=== PATIENT | female | born 1990 | race Caucasian/White ===

== ENCOUNTER 2020-07-09 14:41 | Emergency (ER) | payer OTHER, SELFPAY ==
[2020-07-09 15:06] VITALS: BP 138/84; PULSE 64; RESP 18; TEMP 36.6; O2SAT 97
--- NOTE | 2020-07-09 15:12 | ED.WOUNDLAC ---
HPI - Wound/Laceration General Chief Complaint: Wound/Laceration Stated Complaint: dog bite to lip Time Seen by Provider: 07/09/20 14:48 Source: patient Mode of arrival: ambulatory Limitations: no limitations History of Present Illness HPI narrative: Patient is a 30-year-old female who presents with wound secondary to dog bite patient was at her sister's house when she was bit by her sister's dog patient is unsure as to tetanus status has large defects to the upper and lower left lips patient also has some puncture wounds to the right distal forearm. Patient notes moderate aching pain. Patient presents per private vehicle has not had anything for her symptoms Related Data Home Medications Medication Instructions Recorded Confirmed buspirone mg 07/09/20 duloxetine mg PO 07/09/20 07/09/20 Allergies Allergy/AdvReac Type Severity Reaction Status Date / Time vancomycin Allergy Mild Unknown Verified 07/09/20 15:10 Review of Systems Review of Systems: All systems reviewed & are unremarkable except as noted in HPI and below PMFSH Past Medical History Medical History (Updated 07/09/20 @ 15:15 by Chino Morton PA-C) Anxiety Social History Social History (Updated 07/09/20 @ 15:14 by Chino Morton PA-C) Smoking status: Current every day smoker Exam Narrative: Exam Narrative: GENERAL: Well-appearing, well-nourished, and in no acute distress. HEAD: Normocephalic, large tissue defect to the left upper and lower lateral lip tissue EYES: PERRLA and EOMI. ENT: Nares clear, no rhinorrhea or epistaxis. Mucous membranes moist. Oropharynx without tonsillar hypertrophy exudate or other lesions. CHEST: Clear to auscultation. No respiratory distress. No wheezes rales or rhonchi HEART: Regular rate and rhythm. No murmur heard. Normal peripheral pulses.. EXTREMITIES: Normal range of motion. No edema. Puncture wounds to the distal right forearm SKIN: Warm, dry, no rash. NEURO: No focal deficits. Alert and oriented x3. Neurovascularly intact. Capillary refill less than 2 seconds PSYCH: Normal mood and affect. Course Course Emergency Course: Patient in the room aware of case findings treatment plan and diagnosis and agreeing to transfer to [facility]. Patient prefers to go by private vehicle Reevaluation(s) Reevaluation #1: Spoke with the ER attending who has accepted the patient Discussed case with Dr. Marquis plastic surgery at [facility] who recommends the patient be transferred to tertiary facility Date: 07/09/20 Time: 15:53 Reevaluation #2: Discussed [facility] who would like the patient to be transferred over Date: 07/09/20 Time: 16:50 Vital Signs Vital signs: Vital Signs Temperature 97.9 F 07/09/20 15:06 Pulse Rate 64 07/09/20 15:06 Respiratory Rate 18 07/09/20 15:06 Blood Pressure 138/84 07/09/20 15:06 Pulse Oximetry 97 07/09/20 15:06 Temperature 97.9 F 07/09/20 15:06 Pulse Rate 64 07/09/20 15:06 Respiratory Rate 18 07/09/20 15:06 Blood Pressure 138/84 07/09/20 15:06 Pulse Oximetry 97 07/09/20 15:06 MDM - Wound/Laceration MDM Narrative Medical decision making narrative: Patient with significant facial trauma will be transferred to [facility] for acute evaluation by ENT Critical Care Time Critical Care Time Critical Care Time: Yes Total Critical Care Time: 32 Discharge Plan Discharge Clinical Impression: Complex laceration of face, Puncture wound of forearm, right Patient Disposition: Acute Care Hospital Condition: Stable Additional Instructions: Go straight to the emergency department at [facility] do not eat or drink anything Prescriptions: No Action buspirone 5 mg tablet RF: 0 duloxetine 60 mg capsule,delayed release(DR/EC) PO RF: 0 Follow-up/Referrals: Sam Flores MD [Primary Care Provider] -
[2020-07-09] MEDS: HYDROcodone/acetaminophen (*CRX) 7.5-325 MG TABLET 1 TAB PO (15:22)
[2020-07-09] MEDS: LORazepam (*CRX) 1 MG TABLET PO (15:22)
[2020-07-09] MEDS: TETANUS,DIPHTHERIA,AC PERTUSSIS ADULT (0.5 ML) BOOSTRIX IM (15:30)
--- NOTE | 2020-07-09 15:30 | PC.NURSE ---
Patient has dog bite noted to her right forearm. There are multiple bite watson noted with swelling noted as well. Area cleaned with soap and water, dried blood removed, and wound bandaged with telfa and gauze. Patient also has dog bite noted to left side of mouth. The left upper and lower lips have been bitten off with large avulsed area noted to the left upper and lower lips. Wound was cleaned with sterile saline and then bandaged with non-stick dressing and gauze. Patient does not appear to have any wounds noted in the mouth and there are no teeth that appear missing or broken. no Other wounds are noted with assessment.
[2020-07-09 17:04] VITALS: BP 129/81; PULSE 91; RESP 20; TEMP 37.2; O2SAT 97
[2020-07-09] MEDS: ceFAZolin SODIUM 1 GM VIAL IM (17:19)
[2020-07-09] MEDS: WATER, STERILE FOR INJECTION 10 ML VIAL XX (17:23)
== END 2020-07-09 17:23 | disposition short-term general hospital (02) ==
PROVIDERS: Emergency Provider Emergency Medicine; PCP Family Medicine
DX: S01.551A Open bite of lip, initial encounter (principal); S50.871A Other superficial bite of right forearm, initial encounter; W54.0XXA Bitten by dog, initial encounter; F41.9 Anxiety disorder, unspecified; Z23 Encounter for immunization
CPT/HCPCS: 90471; 90715; 96372; 99283; A9270; J0690

== ENCOUNTER 2020-08-08 18:49 | Emergency (ER) | payer OTHER, SELFPAY ==
--- NOTE | ~2020-08-08 | CT_ITS ---
EXAMINATION: CT abdomen pelvis w con EXAM DATE: 08/08/2020 21:59 INDICATION: Right flank pain, nausea and vomiting. TECHNIQUE: Spiral CT of the abdomen and pelvis was performed following intravenous injection of 100 m L Omnipaque 350. Axial, coronal and sagittal images were reviewed. The dose-length product (DLP) fo r this examination was 557.07 mGy-cm. The exposure was tailored according to patient size (auto mA e xposure control), and iterative reconstruction (ASIR) was used as additional dose reduction technique . There is no prior study for comparison. FINDINGS: There is enhancing right renal urothelium, with inflammation surrounding the ureter, kidney , renal pelvis and regions of decreased right renal parenchymal enhancement. Appearance is consistent with pyelonephritis. No hydronephrosis. Bladder wall is significantly thickened anteriorly and super iorly up to 1.5 cm, probably cystitis. The liver, spleen, adrenal glands and pancreas are unremarkable. Gallbladder is unremarkable. No bi liary obstruction. The uterus is retroverted and morphologically normal, with the IUD in expected po sition. The bladder is unremarkable. There is no retroperitoneal or pelvic lymphadenopathy. The appendix is normal. The stomach and small bowel are unremarkable. There is expected amount of c olonic stool. No free intraperitoneal gas. The heart is normal in size. There are no pericardial or pleural effusions. The lung bases are unremarkable. The bones are unremarkable. IMPRESSION: 1. Acute right-sided pyelonephritis. 2. Cystitis. Reviewed, dictated and finalized at location A.
[2020-08-08 19:01] VITALS: BP 111/75; PULSE 96; RESP 20; TEMP 36.4; O2SAT 100
[2020-08-08] MEDS: SODIUM CHLORIDE 0.9% IV 1,000 ML 999 ML IV CONT (19:43)
[2020-08-08] MEDS: ONDANSETRON INJ 4 MG/2 ML VIAL IV PUSH (19:45)
[2020-08-08] MEDS: MORPHINE SULFATE (*CRX) 4 MG/ML INJ IV PUSH ×2 (19:46→21:16)
[2020-08-08 19:57] LABS: Basophils Percent Auto 0.2 % (0.2-1.2); Eosinophils Percent Auto 0.2 % (0-4.4); Hematocrit 41.7 % (37.0-47.0); Immature Granulocyte Absolute 0.09 K/mm3 (0.00-0.031); Immature Granulocyte Percent A 0.5 % (0-0.5); Lymphocytes Absolute Auto 2.29 K/mm3 (0.9-3.2); Lymphocytes Percent Auto 12.3 % (18.3-44.2); Mean Corpuscular HGB Conc 33.6 g/dl (32-36); Mean Corpuscular Hemoglobin 31.1 pg (26-34); Mean Corpuscular Volume 92.7 fl (80-100); Monocytes Absolute Auto 1.3 K/mm3 (0.1-0.6); Monocytes Percent Auto 6.9 % (2.6-8.5); Neutrophils Absolute Auto 14.9 K/mm3 (1.3-6.7); Neutrophils Percent Auto 79.9 % (45.5-73.1); Platelet Count Result 235 k/mm3 (150-375); Red Cell Distribution Width 13.6 % (11.5-14.5); White Blood Count 18.6 K/mm3 (4.5-10.0)
[2020-08-08 20:02] LABS: Add Urine Microscopic? YES; Appearance Urine Cloudy (Clear); Bilirubin Urine Negative (Negative); Blood Urine 2+ (Negative); Color Urine Amber (Yellow); Glucose Urine UA Negative (Negative); Ketones Urine 2+ mg/dL (Negative); Leukocyte Esterase Ur 3+ LEU/UL (Negative); Mucus Urine Heavy /lpf; Nitrate Urine Negative (Negative); Protein Urine 2+ mg/dL (Negative); Specific Grav Ur 1.023 (1.001-1.035); Squamous Epithelial Cell Urine Many /hpf (Few); Urobilinogen Urine Negative mg/dL (<2.0); WBC Urine >75 /hpf
[2020-08-08 20:09] LABS: Anion Gap 6 mmol/L (8-16); Blood Urea Nitrogen 9 mg/dL (7-17); Carbon Dioxide 29 mmol/L (22-30); Chloride 101 mmol/L (98-107); Estimated Glomerular Filt Rate > 60; Glucose 107 mg/dL (65-105); Potassium 3.7 mmol/L (3.4-5.0); Sodium 136 mmol/L (137-145)
[2020-08-08 20:24] VITALS: BP 113/77; PULSE 85; RESP 19; O2SAT 97
[2020-08-08 21:16] VITALS: BP 108/73; PULSE 88; RESP 15; O2SAT 100
[2020-08-08] MEDS: HYDROmorphone HCL INJ (*CRX) 1 MG/ML SYR 0.5 MG IV PUSH (22:14)
--- NOTE | 2020-08-08 23:10 | ED.GENADULT ---
HPI - General Adult General Chief complaint: Back Pain/Injury Stated complaint: R FLANK PAIN X4D Time Seen by Provider: 08/08/20 19:22 History of Present Illness HPI narrative: Patient is 30-year-old female presents the ER with right-sided flank pain increasing throughout the day. Reports is particularly severe. Can only lay on her left side remain comfortable. Worse with movement. She reports its associated with dark and frequent urination. No fevers or chills or sweats. She has had some nausea with vomiting. Related Data Home Medications Medication Instructions Recorded Confirmed buspirone mg 07/09/20 duloxetine mg PO 07/09/20 07/09/20 Allergies Allergy/AdvReac Type Severity Reaction Status Date / Time vancomycin Allergy Mild Unknown Verified 08/08/20 19:14 Review of Systems Review of Systems: All systems reviewed & are unremarkable except as noted in HPI and below Constitutional: Constitutional: Reports chills, Reports fatigue and Denies fever(s) ENT: Denies nasal congestion and Denies sore throat Gastrointestinal: Gastrointestinal: Reports abdominal pain, Denies diarrhea, Reports nausea and Denies vomiting Genitourinary: Genitourinary: Reports nocturia and Denies dysuria PMFSH Past Medical History Medical History (Updated 08/08/20 @ 23:26 by Mitul Olson MD) Anxiety Surgical History Surgical History (Updated 08/08/20 @ 23:26 by Mitul Olson MD) No history of previous surgery Social History Social History (Updated 07/09/20 @ 15:14 by Chino Morton PA-C) Smoking status: Current every day smoker Exam Narrative: Exam Narrative: GENERAL: Uncomfortable-appearing, well-nourished, and in no acute distress. HEAD: Normocephalic, atraumatic. ENT: Mucous membranes moist. CHEST: Clear to auscultation. No respiratory distress. HEART: Regular rate and rhythm. Normal peripheral pulses. ABDOMEN: Soft, moderate right lateral abdominal tenderness, nondistended. No CVA tenderness. EXTREMITIES: Normal range of motion. No edema. SKIN: Warm, dry, no rash. NEURO: Alert and oriented x3. Course Course Emergency Course: Pain controlled with morphine and Dilaudid. Patient feels comfortable going home. She is able to tolerate oral fluids in the ER. She is received IV ceftriaxone. Educated on diagnosis and treatment plan. Discussed return precautions. Vital Signs Vital signs: Vital Signs Temperature 97.5 F L 08/08/20 19:01 Pulse Rate 96 08/08/20 19:01 Respiratory Rate 20 08/08/20 19:01 Blood Pressure 111/75 08/08/20 19:01 Pulse Oximetry 100 08/08/20 19:01 Temperature 97.5 F L 08/08/20 19:01 Pulse Rate 88 08/08/20 21:16 Respiratory Rate 15 08/08/20 21:16 Blood Pressure 108/73 08/08/20 21:16 Pulse Oximetry 100 08/08/20 21:16 Medical Decision Making Vital Signs Vital Signs: Vital Signs Temperature 97.5 F L 08/08/20 19:01 Pulse Rate 96 08/08/20 19:01 Respiratory Rate 20 08/08/20 19:01 Blood Pressure 111/75 08/08/20 19:01 Pulse Oximetry 100 08/08/20 19:01 Temperature 97.5 F L 08/08/20 19:01 Pulse Rate 88 08/08/20 21:16 Respiratory Rate 15 08/08/20 21:16 Blood Pressure 108/73 08/08/20 21:16 Pulse Oximetry 100 08/08/20 21:16 Lab Data Result diagrams: 08/08/20 19:49 08/08/20 19:49 Labs: Lab Results 08/08/20 08/08/20 08/08/20 Range/Units 19:49 19:49 19:49 WBC 18.6 H (4.5-10.0) K/mm3 RBC 4.50 (4.2-5.4) M/mm3 Hgb 14.0 (12.0-15.0) g/dL Hct 41.7 (37.0-47.0) % MCV 92.7 (80-100) fl MCH 31.1 (26-34) pg MCHC 33.6 (32-36) g/dl RDW 13.6 (11.5-14.5) % Plt Count 235 (150-375) k/mm3 MPV 10.0 (7.4-10.4) fl Immature Gran % (Auto) 0.5 (0-0.5) % Neut % (Auto) 79.9 H (45.5-73.1) % Lymph % (Auto) 12.3 L (18.3-44.2) % [place] % (Auto) 6.9 (2.6-8.5) % Eos % (Auto) 0.2 (0-4.4) % Baso % (Auto) 0.2 (0.2-1.2) % Ly
[2020-08-08 23:45] VITALS: BP 119/67; PULSE 69; RESP 18; O2SAT 97
== END 2020-08-08 23:50 | disposition home or self-care (01) ==
PROVIDERS: Emergency Provider Emergency Medicine; PCP Family Medicine
DX: N12 Tubulo-interstitial nephritis, not specified as acute or chronic (principal); N30.90 Cystitis, unspecified without hematuria; F41.9 Anxiety disorder, unspecified; F17.200 Nicotine dependence, unspecified, uncomplicated
CPT/HCPCS: 36415; 74177; 80048; 81001; 81025; 85025; 87077; 87086; 87088; 87186; 96361; 96365; 96375; 96376; 99284; J0696; J1170; J2270; J2405; J7030; Q9967

== ENCOUNTER 2021-07-14 18:44 | Emergency (ER) | payer OTHER, SELFPAY ==
--- NOTE | ~2021-07-14 | CT_ITS ---
EXAMINATION: CT abdomen pelvis w con DATE: 07/14/2021 23:51 INDICATION: Abdominal pain. Hematochezia. TECHNIQUE: Computed tomography (CT) of the abdomen and pelvis was performed with 100 mL Omnipaque-350 intravenous contrast. Automated exposure control and iterative reconstruction technique were employe d. The dose-length product was 339.54 mGy-cm. COMPARISON: 08/08/2020 FINDINGS: Unchanged 6 mm pleural-based nodule at the posterior left lower lobe. There is a large inferior heart is normal. No pericardial or pleural effusion. Liver, gallbladder, spleen, pancreas, bilateral adren al glands and kidneys are normal. Bowels including the appendix are normal. IUD in expected position in the retroverted uterus. Tampon within the vaginal vault. Bladder is normal. Minimal likely physiol ogic free fluid in the cul-de-sac. No free intraperitoneal gas. No pathologically enlarged abdominal or pelvic lymphadenopathy. Bones are unremarkable. IMPRESSION: 1. No acute intra-abdominal/pelvic process. Reviewed, dictated and finalized at location A.
[2021-07-14 18:47] VITALS: BP 132/80; PULSE 85; RESP 16; TEMP 36.6; O2SAT 100
[2021-07-14 19:01] LABS: Basophils Absolute Auto 0.1 K/mm3 (0.0-0.1); Basophils Percent Auto 0.4 % (0.2-1.2); Eosinophils Absolute Auto 0.1 K/mm3 (0-0.3); Eosinophils Percent Auto 1.1 % (0-4.4); Hematocrit 45.4 % (37.0-47.0); Hemoglobin 15.5 g/dL (12.0-15.0); Immature Granulocyte Absolute 0.03 K/mm3 (0.00-0.031); Immature Granulocyte Percent A 0.3 % (0-0.5); Lymphocytes Percent Auto 48.5 % (18.3-44.2); Mean Corpuscular HGB Conc 34.1 g/dl (32-36); Mean Corpuscular Hemoglobin 32.9 pg (26-34); Mean Corpuscular Volume 96.4 fl (80-100); Mean Platelet Volume 9.3 fl (7.4-10.4); Monocytes Absolute Auto 0.4 K/mm3 (0.1-0.6); Neutrophils Absolute Auto 5.1 K/mm3 (1.3-6.7); Neutrophils Percent Auto 45.7 % (45.5-73.1); Platelet Count Result 275 k/mm3 (150-375); Red Blood Count 4.71 M/mm3 (4.2-5.4); White Blood Count 11.1 K/mm3 (4.5-10.0)
[2021-07-14 19:12] LABS: Alanine Aminotransferase 16 U/L (4-35); Albumin Level 4.7 g/dL (3.5-5.1); Alkaline Phosphatase 76 U/L (38-126); Anion Gap 10 mmol/L (8-16); Aspartate Amino Transferase 22 U/L (14-36); Bilirubin,Total 0.4 mg/dL (0.2-1.3); Blood Urea Nitrogen 7 mg/dL (7-17); Carbon Dioxide 24 mmol/L (22-30); Chloride 105 mmol/L (98-107); Estimated CRCL calculation 79 ml/min; Estimated Glomerular Filt Rate > 60; Glucose 94 mg/dL (65-110); Potassium 3.7 mmol/L (3.4-5.0); Sodium 139 mmol/L (137-145)
[2021-07-14 19:20] LABS: Partial Thromboplastin Time 28.2 SECONDS (22.3-36.8); Prothrombin Time 12.8 Seconds (11.1-14.7)
[2021-07-14 21:08] VITALS: BP 119/92; PULSE 78; RESP 18; O2SAT 100
--- NOTE | 2021-07-14 21:38 | ED.GIBLEED ---
HPI - GI Bleed General Chief complaint: GI Bleed Stated complaint: Blood in stool x 3 days Time Seen by Provider: 07/14/21 21:10 Source: patient Mode of arrival: ambulatory Limitations: no limitations History of Present Illness HPI Narrative: Patient is a 31-year-old female complaining of blood in her stool accompanied by lower abdominal pain, dull, cramping, started 3 days ago. Patient denies any hemoptysis, hematemesis, or melena. Patient denies any nausea, vomiting, diarrhea, fever or chills. Patient denies any similar episodes in the past. Denies being on any oral anticoagulants. Related Data Home Medications Medication Instructions Recorded Confirmed buspirone mg 07/09/20 duloxetine mg PO 07/09/20 07/09/20 Allergies Allergy/AdvReac Type Severity Reaction Status Date / Time vancomycin Allergy Mild Unknown Verified 07/14/21 21:11 Review of Systems Review of Systems: All systems reviewed & are unremarkable except as noted in HPI and below Constitutional: Constitutional: Denies body ache(s), Denies chills, Denies excessive sweating, Denies fatigue, Denies fever(s), Denies headache(s), Denies lethargy, Denies malaise, Denies weakness and Denies weight loss Eyes: Eyes: Denies blurry vision, Denies change in vision and Denies loss of vision ENT: Denies dizziness, Denies ear discharge, Denies headache(s), Denies lip swelling, Denies epistaxis, Denies nasal congestion, Denies neck pain, Denies throat swelling and Denies tongue swelling Cardiovascular: Cardiovascular: Denies chest pain, Denies chest pain at rest, Denies chest pain with activity, Denies diaphoresis, Denies rapid heart rate, Denies edema, Denies irregular heart rhythm, Denies lightheadedness, Denies palpitations, Denies dyspnea and Denies dyspnea on exertion Respiratory: Respiratory: Denies chest congestion, Denies cough, Denies hemoptysis, Denies dyspnea and Denies dyspnea on exertion Gastrointestinal: Gastrointestinal: Denies abdominal pain, Denies melena, Denies diarrhea, Denies nausea, Denies vomiting and Denies hematemesis Musculoskeletal: Musculoskeletal: Denies abnormal gait, Denies deformity, Denies joint swelling, Denies limited range of motion, Denies neck pain and Denies numbness Neurologic: Denies Abnormal speech present, Denies abnormal gait, Denies confusion, Denies dizziness, Denies headache(s), Denies focal weakness, Denies loss of vision, Denies numbness, Denies Other visual disturbances, Denies Sensory deficit (Neuro) and Denies weakness Psychiatric: Psychiatric: Denies confusion, Denies depression, Denies auditory hallucinations, Denies homicidal ideation and Denies suicidal ideation Endocrine: Endocrine: Denies cold intolerance, Denies excessive sweating, Denies fatigue, Denies heat intolerance and Denies palpitations Hematologic/Lymphatic: Hematologic/Lymphatic: Denies easy bleeding and Denies easy bruising Allergic/Immunologic: Allergic/Immunologic: Denies lip swelling, Denies throat swelling and Denies tongue swelling PMFSH Past Medical History Medical History (Updated 07/15/21 @ 00:22 by Guero Leigh MD) Anxiety Surgical History Surgical History (Updated 08/08/20 @ 23:26 by Mitul Olson MD) No history of previous surgery Social History Social History (Updated 07/09/20 @ 15:14 by Chino Morton PA-C) Smoking status: Current every day smoker Comments Past medical history: Anxiety depression Family history: Negative for colorectal CA or history of GI bleed Social history: Positive for smoker no EtOH or drug use Exam Const: General: cooperative, healthy appearing, comfortable, no acute distress, well developed, alert and awake; No confusion Orientation/consciousness: oriented to person, oriented to place, oriented to time, patient oriented x3 and No confusion Limitations: no limitations HENMT: Head: normal to inspection, normocephalic and atraumatic Ears: hearing grossly normal bilaterally, TM normal
[2021-07-14] MEDS: PANTOPRAZOLE SODIUM IV 40 MG VIAL IV PUSH (22:11)
[2021-07-14] MEDS: SODIUM CHLORIDE 0.9% IV 1,000 ML 999 ML IV CONT (22:11)
[2021-07-14 23:08] VITALS: BP 120/78; PULSE 67; RESP 18; O2SAT 99
[2021-07-15 00:28] VITALS: BP 110/78; PULSE 67; RESP 18; O2SAT 97
== END 2021-07-15 00:30 | disposition home or self-care (01) ==
PROVIDERS: Emergency Medicine; Emergency Provider Emergency Medicine; PCP Family Medicine
DX: K62.5 Hemorrhage of anus and rectum (principal); F41.9 Anxiety disorder, unspecified
CPT/HCPCS: 36415; 74177; 80053; 81025; 85025; 85610; 85730; 86850; 86900; 86901; 96361; 96374; 99284; C9113; J7030; Q9967

== ENCOUNTER 2021-08-26 01:58 | Day surgery (SDC) | payer OTHER, SELFPAY ==
[2021-08-07 13:43] VITALS: BMI 28.2
[2021-08-26 10:04] VITALS: BP 109/70; PULSE 88; RESP 16; TEMP 37; O2SAT 96
[2021-08-26] MEDS: LACTATED RINGERS 1,000 ML 150 ML IV CONT (10:13)
[2021-08-26] MEDS: FAMOTIDINE 20 MG/2 ML VIAL IV PUSH (10:28)
--- NOTE | 2021-08-26 10:40 | P.PNAN_ITS ---
Anes - Initial Pre Proc Eval Procedure: Operation Date: 08/26/21 11:15 Proposed Procedures p Colonoscopy - Humberto Negrete MD Date/Time: 08/26/21 10:40 Surgeon: Humberto Negrete MD Pre Op Diagnosis: Rectal Bleeding Patient Data Age: 31 Gender: F Height: 1.57 m Weight: 65.6 kg Last Vital Signs Temp 98.6 F 08/26/21 10:04 Pulse 88 08/26/21 10:04 Resp 16 08/26/21 10:04 BP 109/70 08/26/21 10:04 Pulse Ox 96 08/26/21 10:04 Allergies Allergy/AdvReac Type Severity Reaction Status Date / Time vancomycin Allergy Mild Unknown Verified 08/26/21 10:01 Home Medications Medication Instructions Recorded Confirmed Type duloxetine 120 mg PO DAILY 07/09/20 08/26/21 History Saccharomyces boulardii 250 mg 250 mg PO .QD cap 07/23/21 08/07/21 History capsule bupropion HCl 300 mg 24 hr tablet, 300 mg PO QAM 07/27/21 08/07/21 History extended release Patient hx anesthesia problems: none Family hx anesthesia problems: none Results Review: All pre-operative results and documents have been reviewed as part of the pre-operative evaluation. [facility] Past Medical History Medical History Anxiety Body mass index [BMI] 26.0-26.9, adult Surgical History Surgical History History of eye surgery History of tonsillectomy and adenoidectomy No history of previous surgery Social History Social History Smoking status: Current every day smoker Tobacco type: cigars Additional smoking assessment comments: smokes 2 cigars a day Alcohol intake: current Alcohol use details: rarely Substance use: never Substance use type: does not use Living arrangements: with family Spiritual care concerns: No Anes - Eval Final PreProcedure Day of Procedure 08/26/21 10:40 Patient weight: normal Heart: regular rate and rhythm Lungs: clear to auscultation Airway: Mallampati scale class II Neurological: alert and oriented Last oral intake: >/= 8 hours ASA classification: II Emergent: no Anesthetic plan: proceed Anesthesia type and monitoring: general GIVS and standard monitoring Results Review: All pre-operative results and documents have been reviewed as part of the pre-operative evaluation. Informed Consent: The patient's anesthetic plan and its attendant risks and benefits were discussed with the patient/family/POA. Questions were solicited and answers provided to the satisfaction of the patient/family/POA.
--- NOTE | 2021-08-26 11:01 | PM.HPGS ---
History of Present Illness History of Present Illness Consent: Risks, benefits, and alternatives have been discussed and questions answered. Patient agrees to proceed with procedure. Chief complaint: Rectal Bleeding Narrative: Aleta Turner is a 31 year old female here for colonoscopy. She normally has daily BM's but sometimes will get constipated for 5-7 days then will develop lower abdominal pain, uses stool softner. Never had scopes, few times also noted blood in stool. Review of Systems Constitutional: Constitutional: Denies headache(s) and Denies weakness Eyes: Eyes: Denies blurry vision ENT: Reports Normal hearing present, Denies headache(s) and Denies neck pain Cardiovascular: Cardiovascular: Denies chest pain and Denies dyspnea Respiratory: Respiratory: Denies dyspnea Gastrointestinal: Gastrointestinal: Reports no additional gastrointestinal complaints Genitourinary: Genitourinary: Denies dysuria Musculoskeletal: Musculoskeletal: Denies neck pain Integumentary/Breasts: Skin/Breast: Denies dry skin Neurologic: Reports Normal hearing present, Denies headache(s) and Denies weakness Psychiatric: Psychiatric: Denies anxiety Endocrine: Endocrine: Denies change in body appearance Hematologic/Lymphatic: Hematologic/Lymphatic: Denies easy bleeding Allergic/Immunologic: Allergic/Immunologic: Denies urticaria PMFSH Past Medical History Medical History (Updated 08/26/21 @ 11:03 by Humberto Negrete MD) Anxiety Body mass index [BMI] 26.0-26.9, adult Constipation Surgical History Surgical History History of eye surgery History of tonsillectomy and adenoidectomy No history of previous surgery Social History Social History Smoking status: Current every day smoker Tobacco type: cigars Additional smoking assessment comments: smokes 2 cigars a day Alcohol intake: current Alcohol use details: rarely Substance use: never Substance use type: does not use Living arrangements: with family Spiritual care concerns: No Meds Home Medications and Allergies Home Medications Medication Instructions Recorded Confirmed Type duloxetine 120 mg PO DAILY 07/09/20 08/26/21 History Saccharomyces boulardii 250 mg 250 mg PO .QD cap 07/23/21 08/07/21 History capsule bupropion HCl 300 mg 24 hr tablet, 300 mg PO QAM 07/27/21 08/07/21 History extended release Allergies Allergy/AdvReac Type Severity Reaction Status Date / Time vancomycin Allergy Mild Unknown Verified 08/26/21 10:01 Vital Signs Vital Signs - 24 hr 08/26/21 10:04 Temperature 98.6 F Pulse Rate 88 Respiratory Rate 16 Blood Pressure 109/70 Pulse Oximetry 96 Exam Const: General: comfortable and no acute distress HENMT: General nose exam: Normal nares present Eyes: General: appearance normal, both eyes and all related structures Neck: Neck: no JVD Resp: Auscultation: clear to auscultation bilaterally Cardio: Rate: regular rate Rhythm: regular rhythm GI: Inspection: non-distended GI Palp: Yes Soft to palpation Skin: General skin exam: normal color Neuro: General: gait normal Speech: normal speech Extrem: General: normal to inspection Psych: Mental Status: mental status grossly normal Assessment and Plan Assessment and plan (1) Constipation: Code(s): K59.00 - Constipation, unspecified Status: Acute Assessment and Plan: colonoscopy (2) Rectal bleeding: Code(s): K62.5 - Hemorrhage of anus and rectum Status: Acute
[2021-08-26 11:22] VITALS: BP 102/68; PULSE 69; RESP 19; O2SAT 99
[2021-08-26 11:32] VITALS: BP 108/70; PULSE 66; RESP 19; O2SAT 98
[2021-08-26 11:42] VITALS: BP 114/70; PULSE 79; RESP 20; O2SAT 100
== END 2021-08-26 11:55 | disposition home or self-care (01) ==
PROVIDERS: PCP Family Medicine; Visit Provider Internal Medicine Gastroenterology
PROC: 0DJD8ZZ Inspection of Lower Intestinal Tract, Via Natural or Artificial Opening Endoscopic (ICD-10-PCS; CPT 45378; principal; 2021-08-26 11:15)
DX: Z12.11 Encounter for screening for malignant neoplasm of colon (principal); K64.8 Other hemorrhoids; F41.9 Anxiety disorder, unspecified; K62.5 Hemorrhage of anus and rectum; F17.290 Nicotine dependence, other tobacco product, uncomplicated; K59.00 Constipation, unspecified
CPT/HCPCS: 45378; J2704; J7120

== ENCOUNTER 2022-01-04 09:36 | Outpatient (CLI) | payer OTHER, SELFPAY ==
--- NOTE | ~2022-01-04 | US_ITS ---
US OB <=14 wk fetus w TV DATE: 01/04/2022 10:25 INDICATION: Uncertain dates TECHNIQUE: Real-time imaging and Doppler analysis COMPARISON: None FINDINGS: The uterus measures 13.7 cm height, up to 7.5 cm anteroposterior dimension. Intrauterine ge stational sac with pole is identified with crown-rump length averaging 0.95 cm, consistent with 7 weeks +/- 4 days estimated gestational age, SHAHEEN of 08/23/2022. heart rate of 124 bpm. There is a subjacent subchorionic hematoma measuring approximately 1.6 x 3.6 x 1.2 cm. The ovaries appear normal. There is vascular flow to both ovaries. IMPRESSION: 1.6 x 3.6 x 1.2 cm subchorionic hematoma Estimated gestational age of 7 weeks +/- 4 days; SHAHEEN: 08/23/2022 Reviewed, dictated and finalized at Location [facility]. Reviewed, dictated and finalized at location A.
== END 2022-01-04 09:37 | disposition home or self-care (01) ==
LOC: ANHIMG 09:38
PROVIDERS: PCP Family Medicine; Visit Provider Obstetrics & Gynecology Gynecology
DX: Z36.87 Encounter for antenatal screening for uncertain dates (principal); Z3A.01 Less than 8 weeks gestation of pregnancy
CPT/HCPCS: 76801; 76817

== ENCOUNTER 2022-01-13 08:16 | Outpatient (CLI) | payer OTHER, SELFPAY ==
--- NOTE | ~2022-01-13 | US_ITS ---
EXAMINATION: US OB <= 14 weeks fetus DATE: 01/13/2022 08:45 INDICATION: Spotting during first trimester TECHNIQUE: Real-time pelvic transabdominal and transvaginal ultrasound was performed. COMPARISON: 01/04/2022 FINDINGS: The uterus measures 9.5 x 9.1 x 7.6 cm. There is an intrauterine gestational sac. There is a 3.2 x 2.4 x 4.4 cm hypoechoic area adjacent to the gestational sac which has increased in size sin ce the comparison examination. heart motion is identified measuring 163 beats per minute (bpm) by M-mode Doppler. The crown rump length measures 1.75 cm , which correlates with an estimated gestational age of 8 weeks and 1 day(s) (+/-) 5 day(s). The left ovary is not visualized however no left adnexal abnormality is seen. The right ovary measure s 3.3 x 2.5 x 1.5 cm. There is normal vascular flow in the right ovary. There is no free fluid in the pelvis. IMPRESSION: 1. Live intrauterine with an estimated gestational age of 8 weeks and 1 day(s) (+/-) 5 day( s) and an estimated delivery date of 08/24/2022. 2. Subchorionic hematoma with interval increase in size. Reviewed, dictated and finalized at location B. IMPRESSION: 1. Live intrauterine with an estimated gestational age of 8 weeks and 1 day(s) (+/-) 5 day(s) and an estimated delivery date of 08/24/2022. 2. Subchorionic hematoma with interval increase in size.
== END 2022-01-13 08:17 | disposition home or self-care (01) ==
LOC: ANHIMG 08:19
PROVIDERS: PCP Family Medicine; Visit Provider Obstetrics & Gynecology Gynecology
DX: O36.8911 Maternal care for other specified fetal problems, first trimester, fetus 1 (principal); Z3A.01 Less than 8 weeks gestation of pregnancy
CPT/HCPCS: 76801

== ENCOUNTER 2022-02-15 08:06 | Outpatient (CLI) | payer OTHER, SELFPAY ==
--- NOTE | ~2022-02-15 | US_ITS ---
EXAMINATION: US OB <= 14 weeks fetus DATE: 02/15/2022 08:38 INDICATION: Subchorionic hematoma, first trimester TECHNIQUE: Real-time pelvic transabdominal and transvaginal ultrasound was performed. COMPARISON: 01/13/2022 FINDINGS: The uterus measures 14.3 x 11.1 x 9.5 cm. There is an intrauterine gestational sac. There is a 3.9 x 1.9 x 2.3 cm hypoechoic area adjacent to the gestational sac which is decreased in size Fe pirere heart motion is identified measuring 159 beats per minute (bpm) by M-mode Doppler. The [place] rump length measures 6.7 cm , which correlates with an estimated gestational age of 13 weeks and 0 day(s) (+/-) 8 day(s). The ovaries are not visualized however no adnexal abnormality is seen. There is no free fluid in the pelvis. IMPRESSION: 1. Live intrauterine with an estimated gestational age of 13 weeks and 0 day(s) (+/-) 8 day (s) and an estimated delivery date of 08/23/2022. 2. Subchorionic hematoma with decrease in size. Reviewed, dictated and finalized at location F. IMPRESSION: 1. Live intrauterine with an estimated gestational age of 13 weeks an d 0 day(s) (+/-) 8 day(s) and an estimated delivery date of 08/23/2022. 2. Subchorionic hematoma with decrease in size.
== END 2022-02-15 08:07 | disposition home or self-care (01) ==
LOC: ANHIMG 08:08
PROVIDERS: PCP Family Medicine; Visit Provider Obstetrics & Gynecology Gynecology
DX: O36.8910 Maternal care for other specified fetal problems, first trimester, not applicable or unspecified (principal); Z3A.13 13 weeks gestation of pregnancy
CPT/HCPCS: 76801

== ENCOUNTER 2022-03-03 12:30 | Outpatient (CLI) | payer OTHER, SELFPAY ==
--- NOTE | ~2022-03-03 | US_ITS ---
EXAMINATION: US OB follow up DATE: 03/03/2022 13:18 INDICATION: Subchorionic hematoma, second trimester TECHNIQUE: Real-time ultrasound of the pelvis was performed. The interpreting radiologist was not pre sent for the study. COMPARISON: 02/15/2022 FINDINGS: There is a single living fetus in variable presentation. The placenta is anterior. There is slight decrease in the previously described subchorionic hematoma which now measures 3.4 x 0.9 x 2.1 cm. cardiac activity and movement are noted. heart rate is 138 beats per minute (b pm). The amniotic fluid index is subjectively normal. The following biometric data were obtained: Biparietal diameter (BPD): 3.1 cm; head circumference (HC): 11.3 cm; abdominal circumference (AC): 9. 5 cm; femur length (FL): 1.8 cm. These measurements are concordant. Estimated weight is 127 g +/- 19 g, which correlates with the 57th percentile when 08/23/2022 i s used as estimated date of delivery. As single measurements, these parameters are each equal to the following estimated gestational ages w ith ranges of +/- 2 standard deviations: BPD: 15 weeks 5 days +/- 1 weeks 1 days. HC: 15 weeks 3 days +/- 1 weeks 1 days. AC: 15 weeks 5 days +/- 1 weeks 5 days. FL: 15 weeks 3 days +/- 1 weeks 3 days. estimated gestational age based solely on measurements from this exam is 15 weeks 4 days +/- 1 weeks 1 days. IMPRESSION: 1. Single living fetus in variable presentation. 2. Small subchorionic hematoma with decrease in size. 3. Estimated weight is 127 g +/- 19 g, which correlates with the 57th percentile when 2 is used as estimated date of delivery. Reviewed, dictated and finalized at location A. IMPRESSION: 1. Single living fetus in variable presentation. 2. Small subchorionic hematoma with decrease in size. 3. Estimated weight is 127 g +/- 19 g, which correlates with the 57th per centile when 08/23/2022 is used as estimated date of delivery.
== END 2022-03-03 12:31 | disposition home or self-care (01) ==
PROVIDERS: PCP Family Medicine; Visit Provider Obstetrics & Gynecology Gynecology
DX: O36.8920 Maternal care for other specified fetal problems, second trimester, not applicable or unspecified (principal); Z3A.15 15 weeks gestation of pregnancy
CPT/HCPCS: 76816

== ENCOUNTER 2022-04-12 13:39 | Outpatient (CLI) | payer OTHER, SELFPAY ==
--- NOTE | ~2022-04-12 | US_ITS ---
EXAMINATION: US OB /maternal detail DATE: 04/12/2022 15:31 INDICATION: anatomic survey. TECHNIQUE: Real-time ultrasound of the pelvis was performed. COMPARISON: Ultrasound 03/03/2022, 01/04/2022 FINDINGS: There is a single living fetus in transverse lie. The placenta is anterior. heart rate is 147 beats per minute (bpm). The amniotic fluid index is 11.6 cm, which is normal. The following biometric data were obtained: Biparietal diameter (BPD): 5.0 cm; head circumference (HC): 19.2 cm; abdominal circumference (AC): 17 .6 cm; femur length (FL): 3.3 cm. These measurements are discordant with low FL/AC ratio. Estimated weight is 426 g +/- 64 g, which correlates with the 70th percentile when 08/23/22 is used as estimated date of delivery. As single measurements, these parameters are each equal to the following estimated gestational ages: BPD: 21 weeks 1 days. HC: 21 weeks 3 days. AC: 22 weeks 4 days. FL: 20 weeks 1 days. estimated gestational age based solely on measurements from this exam is 21 weeks 2 days +/- 1 weeks 3 days. The cerebral ventricles, cerebellum, cisterna magna, nuchal fold, and visualized portions of the spin e are normal. The heart is normal. The diaphragm, stomach, kidneys, and bladder are normal. There are two umbilical arteries to yield a 3-vessel cord. The cord insertion is normal. IMPRESSION: 1. Single living fetus in transverse lie. 2. Estimated weight is 426 g +/- 64 g, which correlates with the 70th percentile when 08/23/22 is used as estimated date of delivery. This date was set by ultrasound on 01/04/22. 3. Discordant biometrics with low FL/AC ratio. 4. Normal anatomic survey. Reviewed, dictated and finalized at location A. IMPRESSION: 1. Single living fetus in transverse lie. 2. Estimated weight is 426 g +/- 64 g, which correlates with the 70th pe rcentile when 08/23/22 is used as estimated date of delivery. This date was set by ultrasound on 01/04/22. 3. Discordant biometrics with low FL/AC ratio. 4. Normal anatomic survey.
== END 2022-04-12 13:40 | disposition home or self-care (01) ==
PROVIDERS: PCP Family Medicine; Visit Provider Obstetrics & Gynecology Gynecology
DX: Z36.9 Encounter for antenatal screening, unspecified (principal); Z3A.21 21 weeks gestation of pregnancy
CPT/HCPCS: 76805

== ENCOUNTER 2022-06-23 11:47 | Emergency (ER) | payer OTHER, SELFPAY ==
[2022-06-23 11:54] VITALS: BP 121/66; PULSE 101; RESP 18; TEMP 35.7; O2SAT 100
--- NOTE | 2022-06-23 12:23 | ED.EAR ---
HPI - Ear Problem General Chief complaint: Ear Stated complaint: ear pain Time Seen by Provider: 06/23/22 12:00 Source: patient Mode of arrival: ambulatory Limitations: no limitations History of Present Illness HPI Narrative: Ms. Turner is a 32-year-old female patient presenting to the clinic today with complaints of right-sided ear pain. She reports this is been ongoing for 2 to 3 days. She denies any fever or chills. She is currently 31 weeks . Related Data Home Medications Medication Instructions Recorded Confirmed Saccharomyces boulardii 250 mg 250 mg PO .QD 07/23/21 06/23/22 capsule (Daily Probiotic (S. boulardii)) cholecalciferol (vitamin D3) 250 250 mcg PO DAILY 10/14/21 06/23/22 mcg (10,000 unit) capsule Allergies Allergy/AdvReac Type Severity Reaction Status Date / Time vancomycin Allergy Mild Unknown Verified 06/23/22 12:17 Review of Systems Review of Systems: Pertinent positives per HPI. Patient denies any fever, chills, rash, headache, visual changes, dizziness, cough, runny nose, sore throat, shortness of breath, chest pain, palpitations, nausea, vomiting, diarrhea, constipation, abdominal pain, or any urinary issues. PMFSH Past Medical History Medical History Anxiety Body mass index [BMI] 26.0-26.9, adult Constipation Overweight with body mass index (BMI) of 28 to 28.9 in adult Surgical History Surgical History History of eye surgery History of tonsillectomy and adenoidectomy No history of previous surgery Social History Social History Tobacco type: cigars Additional smoking assessment comments: smokes 2 cigars a day Alcohol intake: current Alcohol use details: rarely Substance use: never Substance use type: does not use Spiritual care concerns: No Comments At the time of my signature, I reviewed and agree with the nursing past medical, surgical, social, and family history. There is no relevant family history pertinent to the patient complaint. Exam Narrative: General: Well-developed, well nourished, in no apparent distress Head: Normocephalic, atraumatic Eyes: Pupils equally round and reactive to light bilaterally, EOM intact, sclera and conjunctive clear, no discharge, lids normal Ears: Left TM intact and clear, left ear canals clear, right ear canal impacted with cerumen, ear lavage performed and was successful, right TM intact, bulging, and red ,no drainage, grossly hearing normal. Nose: Nares patent, no discharge, no inflammation, no sinus tenderness. Mouth: Oropharynx without lesions or masses, good dentition, MMM. Neck: Supple, trachea midline, no enlargement of anterior or posterior cervical nodes, no thyroid masses or goiter palpable. Cardio: Regular rate and rhythm, s1 and s2 normal, no murmur appreciated. Resp: Clear to auscultation bilaterally anteriorly and posteriorly, no rhonchi, rales, wheezing or rubs Course Course Emergency Course: Portions of this record may have been created with voice recognition software. Level of Care: Express Care Visit Vital Signs Vital signs: Vital Signs Temperature 35.7 C L 06/23/22 11:54 Pulse Rate 101 H 06/23/22 11:54 Respiratory Rate 18 06/23/22 11:54 Blood Pressure 121/66 06/23/22 11:54 Pulse Oximetry 100 06/23/22 11:54 Oxygen Delivery Room Air 06/23/22 11:54 Temperature 35.7 C L 06/23/22 11:54 Pulse Rate 101 H 06/23/22 11:54 Respiratory Rate 18 06/23/22 11:54 Blood Pressure 121/66 06/23/22 11:54 Pulse Oximetry 100 06/23/22 11:54 Oxygen Delivery Room Air 06/23/22 11:54 Vital signs reviewed Procedures Ear Wax Removal Right Ear: Ear Wax Removal Date: 06/23/22 Results: Re-examined: cerumen removed completely TM Examination: TM(s) erythematous (Bulging)
== END 2022-06-23 12:30 | disposition home or self-care (01) ==
PROVIDERS: Emergency Provider Nurse Practitioner Family; PCP Family Medicine
DX: O99.891 Other specified diseases and conditions complicating pregnancy (principal); Z3A.31 31 weeks gestation of pregnancy; H66.91 Otitis media, unspecified, right ear; H61.21 Impacted cerumen, right ear; F17.290 Nicotine dependence, other tobacco product, uncomplicated; O99.343 Other mental disorders complicating pregnancy, third trimester; F41.9 Anxiety disorder, unspecified
CPT/HCPCS: 69209; 99213; G0463

== ENCOUNTER 2022-07-08 19:14 | Observation (INO) | payer OTHER, SELFPAY ==
[2022-07-08] VITALS (38 sets, daily range): PULSE 88–107; O2SAT 96–100; BMI 32.8
[2022-07-08] MEDS: TERBUTALINE SULFATE 1 MG/ML VIAL 0.25 MG SUB-Q ×2 (19:47→20:48)
[2022-07-08 19:56] LABS: Glucose Point of Care 96 mg/dl (65-105)
--- NOTE | 2022-07-08 20:50 | OBADM ---
This patient, Aleta Turner, admitted to the OB room Labor/Delivery/Recovery 103 for observation. Patient/family oriented to hospital policies and general routines including ID bracelet, bed and alarms, visiting hours, pain management, procedures, bathroom and other care routines, personal items, smoking policy, room service/diet, and visiting hours. Patient/Family are encouraged to report perceived risks to care and to ask questions if they do not understand what they are told or what they should do.
[2022-07-08] MEDS: NIFEdipine 10 MG CAPSULE PO (22:10)
[2022-07-08] MEDS: BETAMETHASONE SOD PHOS/ACETATE 30 MG/5 ML VIAL 12 MG IM (22:11)
[2022-07-08] MEDS: INSULIN HUMAN NPH (*BKC) 100 UNITS/ML SUB-Q (22:28)
[2022-07-09 00:03] VITALS: PULSE 91; O2SAT 99
--- NOTE | 2022-07-15 07:36 | PM.OBTRLD ---
OB - Triage/Final Diagnosis Visit Information Reason for evaluation: threatened labor Comments/Additional reasons for admission: I have assessed the risk for this patient, Aleta Turner, and determined that she would benefit from observation care. Evaluation Laboratory results: Laboratory Tests 07/08/22 19:52 POC Capillary Glucose 96
== END 2022-07-09 00:10 | disposition home or self-care (01) ==
PROVIDERS: Admitting Provider Obstetrics & Gynecology Gynecology; PCP Family Medicine; Visit Provider Obstetrics & Gynecology Gynecology
DX: O47.03 False labor before 37 completed weeks of gestation, third trimester (principal); O24.419 Gestational diabetes mellitus in pregnancy, unspecified control; Z3A.33 33 weeks gestation of pregnancy
CPT/HCPCS: 82948; 96372; A9270; G0378; G0379; J0702; J1815; J3105

== ENCOUNTER 2022-07-09 21:03 | Outpatient (CLI) | payer OTHER, SELFPAY ==
[2022-07-09] MEDS: BETAMETHASONE SOD PHOS/ACETATE 30 MG/5 ML VIAL 12 MG IM (21:34)
== END 2022-07-09 21:04 | disposition home or self-care (01) ==
LOC: ANHOBOP 21:13
PROVIDERS: PCP Family Medicine; Visit Provider Obstetrics & Gynecology Gynecology
DX: Z34.90 Encounter for supervision of normal pregnancy, unspecified, unspecified trimester (principal); Z3A.00 Weeks of gestation of pregnancy not specified
CPT/HCPCS: 96372; J0702

== ENCOUNTER 2022-07-13 21:11 | Observation (INO) | payer OTHER, SELFPAY ==
[2022-07-13 21:21] VITALS: BP 116/70; PULSE 86
[2022-07-13 21:31] VITALS: BP 114/75; PULSE 83
[2022-07-13 21:45] VITALS: BP 124/68; PULSE 84
[2022-07-13 21:49] VITALS: BMI 32.0
[2022-07-13 22:01] VITALS: BP 124/64; PULSE 93
[2022-07-13 22:08] VITALS: BP 124/64; PULSE 93
[2022-07-13] MEDS: NIFEdipine 10 MG CAPSULE PO ×2 (22:50→23:39)
[2022-07-14] VITALS (32 sets, daily range): PULSE 71–99; O2SAT 93–100
[2022-07-14 01:56] LABS: Glucose Point of Care 101 mg/dl (65-105)
[2022-07-14] MEDS: TERBUTALINE SULFATE 1 MG/ML VIAL 0.25 MG SUB-Q (02:13)
[2022-07-14] MEDS: INSULIN HUMAN NPH (*BKC) 100 UNITS/ML 10 UNITS SUB-Q (03:07)
[2022-07-14 03:58] LABS: Glucose Point of Care 105 mg/dl (65-105)
--- NOTE | 2022-07-19 08:28 | PM.OBTRLD ---
OB - Triage/Final Diagnosis Visit Information Reason for evaluation: threatened labor Comments/Additional reasons for admission: I have assessed the risk for this patient, Aleta Turner, and determined that she would benefit from observation care. Evaluation Laboratory results: Laboratory Tests 07/14/22 07/14/22 01:53 03:54 POC Capillary Glucose 101 105
== END 2022-07-14 04:45 | disposition home or self-care (01) ==
PROVIDERS: Admitting Provider Obstetrics & Gynecology Gynecology; PCP Family Medicine; Visit Provider Obstetrics & Gynecology Gynecology
DX: O47.9 False labor, unspecified (principal); Z3A.00 Weeks of gestation of pregnancy not specified
CPT/HCPCS: 82948; 96372; A9270; G0378; G0379; J1815; J3105

== ENCOUNTER 2022-07-21 22:11 | Observation (INO) | payer OTHER, SELFPAY ==
[2022-07-21 22:14] VITALS: BP 126/71; PULSE 70; RESP 20; TEMP 36.2; O2SAT 100
[2022-07-21 22:24] VITALS: PULSE 69; RESP 22
[2022-07-21 22:25] VITALS: BP 122/71; PULSE 70; RESP 19; O2SAT 100
--- NOTE | 2022-07-21 22:28 | ECG_ITS ---
Measurements Intervals [place] Rate: 68 P: 51 DE: 160 QRS: 21 QRSD: 84 T: 30 QT: 373 QTc: 397 Interpretive Statements SINUS RHYTHM BASELINE WANDER- I, III NORMAL ECG NO PREVIOUS ECG AVAILABLE FOR COMPARISON Electronically Signed On 07-22-2022 6:36:28 CDT by Enrique Campbell D.O.
[2022-07-21 22:30] VITALS: PULSE 72; RESP 23; O2SAT 99
[2022-07-21 22:31] VITALS: BP 120/91; PULSE 79; RESP 21; O2SAT 100
--- NOTE | 2022-07-21 22:36 | ED.GENADULT ---
HPI - General Adult General Chief complaint: Unspecified Stated complaint: TINGLE FACE/ CHEST PRESSURE Time Seen by Provider: 07/21/22 22:26 History of Present Illness HPI narrative: 32-year-old female that is 35 weeks presented the emergency department for evaluation of an episode of chest pressure and facial tingling. Patient states that approximately 730 she was having contractions and was hyperventilating. Patient states during this period that she did notice some facial tingling. Patient states she is still having some contractions but denies any vaginal bleeding or breaking of her water. Patient states that she is no longer having any chest pain and patient states that the facial tingling resolved once she stopped hyperventilating. Patient's family also confirms that the patient was hyperventilating at the time. Patient feels she is still having contractions. Patient denies any prior history of MS or CVA. Patient denies any prior history of PE or DVT. Patient denies any history of bleeding or clotting disorders. Related Data Home Medications Medication Instructions Recorded Confirmed Saccharomyces boulardii 250 mg 250 mg PO .QD 07/23/21 07/13/22 capsule (Daily Probiotic (S. boulardii)) cholecalciferol (vitamin D3) 250 250 mcg PO DAILY 10/14/21 07/13/22 mcg (10,000 unit) capsule insulin NPH isoph U-100 human 100 8 unit subcut HS 07/14/22 07/14/22 unit/mL subcutaneous suspension (Humulin N NPH U-100 Insulin (isophane susp)) sertraline 100 mg tablet mg 07/21/22 07/21/22 Allergies Allergy/AdvReac Type Severity Reaction Status Date / Time vancomycin Allergy Mild Unknown Verified 07/21/22 22:28 Review of Systems Review of Systems: CONSTITUTIONAL: Denies fever, chills, or sweats. EYES: Denies visual changes, redness, or discharge. ENT: Denies rhinorrhea, congestion, sore throat, or otalgia. CARDIOVASCULAR: Chest pressure during hyperventilation. RESPIRATORY: Denies cough or dyspnea. GASTROINTESTINAL: Denies abdominal pain, nausea, vomiting, or diarrhea. GENITOURINARY: Denies dysuria or hematuria. SKIN: Denies rash or itching. MUSCULOSKELETAL: Denies back pain, joint pain, or myalgia. NEUROLOGIC: Resolved facial tingling PMF Past Medical History Medical History Anxiety Body mass index [BMI] 26.0-26.9, adult Constipation Overweight with body mass index (BMI) of 28 to 28.9 in adult Surgical History Surgical History History of eye surgery History of tonsillectomy and adenoidectomy No history of previous surgery Social History Social History Tobacco type: cigars Additional smoking assessment comments: smokes 2 cigars a day Alcohol intake: current Alcohol use details: rarely Substance use: never Substance use type: does not use Spiritual care concerns: No Exam Narrative: APPEARANCE: Well appearing, no pain, no distress, well-nourished. HEAD: normocephalic, atraumatic. EYES: PERRLA/EOMI, conjunctivae clear. NOSE: Normal no drainage THROAT: Pharynx clear, no exudate. NECK: Supple. No adenopathy, no masses. RESPIRATORY: Airway patent, respirations nonlabored. Clear to auscultation bilaterally, no rales, rhonchi, wheezing. CARDIOVASCULAR: Regular rate and rhythm without murmurs rubs or gallops. ABDOMINAL: Soft, nontender, nondistended, normal bowel sounds MUSCULOSKELETAL: Moves all extremities. Strength/ROM intact, No edema, No calf tenderness. NEURO: Alert. Cranial nerves II through XII intact. Normal neuro exam with no ataxia, no pronator drift. Normal strength and reflexes. No current tingling and no numbness SKIN: Warm, dry. Normal Color Course Course Emergency Course: Patient states she is no longer having any facial tingling or chest pressure. Patient states her symptoms re
[2022-07-22] VITALS: BMI 32.4
--- NOTE | 2022-07-22 02:12 | OBADM ---
This patient, Aleta Turner, admitted to the OB room Labor/Delivery/Recovery 109 for observation. Patient/family oriented to hospital policies and general routines including ID bracelet, bed and alarms, visiting hours, pain management, procedures, bathroom and other care routines, personal items, smoking policy, room service/diet, and visiting hours. Patient/Family are encouraged to report perceived risks to care and to ask questions if they do not understand what they are told or what they should do.
--- NOTE | 2022-07-22 13:13 | PM.OBTRLD ---
OB - Triage/Final Diagnosis Visit Information Date of evaluation: 07/22/22 Reason for evaluation: threatened labor and other (anxiety) Comments/Additional reasons for admission: I have assessed the risk for this patient, Aleta Turner, and determined that she would benefit from observation care. Evaluation Vital signs: Vital Signs - 24 hr 07/21/22 22:14 07/21/22 22:24 07/21/22 22:25 Temperature 97.2 F L Pulse Rate 70 69 70 Respiratory Rate 20 22 H 19 Blood Pressure 126/71 122/71 Pulse Oximetry 100 100 Oxygen Delivery Room Air 07/21/22 22:30 07/21/22 22:31 Temperature Pulse Rate 72 79 Respiratory Rate 23 H 21 H Blood Pressure 120/91 H Pulse Oximetry 99 100 Oxygen Delivery
== END 2022-07-22 02:20 | disposition home or self-care (01) ==
LOC: ANHED 22:40 → ANHLDR 07-22 00:21
PROVIDERS: Admitting Provider Obstetrics & Gynecology Gynecology; Emergency Provider Emergency Medicine; PCP Family Medicine; Visit Provider Obstetrics & Gynecology Gynecology
DX: O47.1 False labor at or after 37 completed weeks of gestation (principal); O26.893 Other specified pregnancy related conditions, third trimester; F41.9 Anxiety disorder, unspecified; R20.2 Paresthesia of skin; R07.89 Other chest pain; O99.513 Diseases of the respiratory system complicating pregnancy, third trimester; R06.4 Hyperventilation; Z3A.35 35 weeks gestation of pregnancy; Z79.4 Long term (current) use of insulin; Z79.899 Other long term (current) drug therapy; O99.333 Smoking (tobacco) complicating pregnancy, third trimester; F17.290 Nicotine dependence, other tobacco product, uncomplicated
CPT/HCPCS: 93005; 99285; G0378; G0379

== ENCOUNTER 2022-07-23 17:20 | Outpatient (CLI) | payer OTHER, SELFPAY ==
[2022-07-23 17:45] VITALS: BP 126/69; PULSE 68
[2022-07-23 18:00] VITALS: BP 121/70; PULSE 69
--- NOTE | 2022-07-23 18:10 | PC.NURSE ---
Dr Lopez notified of adm c/o, reassuring fht's and bp's. OK to dc home.
[2022-07-23 18:15] VITALS: BP 126/69; PULSE 69; TEMP 36.6
== END 2022-07-23 18:15 | disposition home or self-care (01) ==
LOC: ANHOBOP 17:31 → ANHOBPP 17:32
PROVIDERS: PCP Family Medicine; Visit Provider Obstetrics & Gynecology Gynecology
DX: O13.9 Gestational [pregnancy-induced] hypertension without significant proteinuria, unspecified trimester (principal); Z3A.00 Weeks of gestation of pregnancy not specified
CPT/HCPCS: 59025; 99199

== ENCOUNTER 2022-07-25 18:55 | Observation (INO) | payer OTHER, SELFPAY ==
[2022-07-25 18:55] VITALS: BMI 32.8
--- NOTE | 2022-08-10 13:12 | PM.OBTRLD ---
OB - Triage/Final Diagnosis Visit Information Date of evaluation: 07/25/22 Reason for evaluation: threatened labor Comments/Additional reasons for admission: I have assessed the risk for this patient, Aleta Santoyo Johnny, and determined that she would benefit from observation care.
== END 2022-07-25 21:58 | disposition home or self-care (01) ==
PROVIDERS: Admitting Provider Obstetrics & Gynecology; PCP Family Medicine; Visit Provider Advanced Practice Midwife
DX: O47.9 False labor, unspecified (principal); Z3A.00 Weeks of gestation of pregnancy not specified
CPT/HCPCS: G0378; G0379

== ENCOUNTER 2022-08-02 15:15 | Inpatient (IN) | payer OTHER, SELFPAY ==
[2022-08-02 22:07] VITALS: BP 119/68; PULSE 76
[2022-08-02 22:16] VITALS: BP 120/70; PULSE 77
[2022-08-02 22:34] LABS: Glucose Point of Care 118 mg/dl (65-105)
[2022-08-02 22:41] LABS: Basophils Percent Auto 0.2 % (0.2-1.2); Eosinophils Absolute Auto 0.1 K/mm3 (0-0.3); Eosinophils Percent Auto 0.5 % (0-4.4); Hematocrit 31.2 % (37.0-47.0); Hemoglobin 10.4 g/dL (12.0-15.0); Immature Granulocyte Absolute 0.16 K/mm3 (0.00-0.031); Immature Granulocyte Percent A 1.2 % (0-0.5); Lymphocytes Absolute Auto 3.05 K/mm3 (0.9-3.2); Lymphocytes Percent Auto 23.5 % (18.3-44.2); Mean Corpuscular HGB Conc 33.3 g/dl (32-36); Mean Corpuscular Hemoglobin 30.7 pg (26-34); Mean Platelet Volume 10.6 fl (7.4-10.4); Monocytes Percent Auto 7.5 % (2.6-8.5); Neutrophils Absolute Auto 8.7 K/mm3 (1.3-6.7); Neutrophils Percent Auto 67.1 % (45.5-73.1); Platelet Count Result 224 k/mm3 (150-375); Red Blood Count 3.39 M/mm3 (4.2-5.4); Red Cell Distribution Width 13.4 % (11.5-14.5)
[2022-08-02 23:00] LABS: Alanine Aminotransferase 13 U/L (6-35); Albumin Level 3.2 g/dL (3.5-5.1); Alkaline Phosphatase 113 U/L (38-126); Anion Gap 7 mmol/L (8-16); Aspartate Amino Transferase 17 U/L (14-36); Bilirubin,Total 0.2 mg/dL (0.2-1.3); Blood Urea Nitrogen 6 mg/dL (7-17); Calcium 8.7 mg/dL (8.4-10.2); Carbon Dioxide 19 mmol/L (22-30); Chloride 108 mmol/L (98-107); Estimated Glomerular Filt Rate > 60; Glucose 117 mg/dL (65-110); Potassium 3.3 mmol/L (3.4-5.0); Sodium 134 mmol/L (137-145)
[2022-08-02 23:09] VITALS: BMI 32.4
[2022-08-02] MEDS: INSULIN HUMAN NPH (*BKC) 100 UNITS/ML 16 UNITS SUB-Q (23:39)
[2022-08-02] MEDS: traZODone HCL 50 MG TABLET PO (23:39)
[2022-08-03] VITALS (55 sets, daily range): BP systolic 108–137; BP diastolic 53–76; PULSE 52–82; RESP 16–18; TEMP 36.2–36.8; O2SAT 97–100
--- NOTE | 2022-08-03 01:56 | LDADM ---
This patient, Aleta Turner, was admitted to OB Post 116 on 08/02/22 at 15:15. Plans for labor, pain management and were discussed with patient. Patient/family oriented to hospital policies and general routines including ID bracelet, bed and alarms, visiting hours, pain management, procedures, bathroom and other care routines, personal items, smoking policy, room service/diet and guest tray routines, security routines, and visiting hours. Patient/Family are encouraged to report perceived risks to care and to ask questions if they do not understand what they are told or what they should do. See OBIX for further documentation.
[2022-08-03 04:00] LABS: HIV 1/2 Ab P24 Ag Result Negative (Negative)
[2022-08-03 05:54] LABS: Glucose Point of Care 88 mg/dl (65-105)
[2022-08-03] MEDS: LACTATED RINGERS 1,000 ML 125 ML IV CONT ×3 (07:11→09:46)
--- NOTE | 2022-08-03 07:13 | WPDANESEPPF ---
Anes - Initial Pre Proc Eval Procedure: Operation Date: 08/03/22 08:30 Proposed Procedures p Section - Michelle Stephen MD Date/Time: 08/03/22 07:13 Surgeon: Michelle Stephen MD Pre Op Diagnosis: section Patient Data Age: 32 Gender: F Height: 1.6 m Weight: 83 kg Last Vital Signs Pulse 79 08/03/22 05:50 BP 118/58 L 08/03/22 05:50 O2 Del Method Room Air 08/03/22 02:14 Allergies Allergy/AdvReac Type Severity Reaction Status Date / Time vancomycin Allergy Mild Unknown Verified 08/02/22 23:12 Home Medications Medication Instructions Recorded Confirmed Type Saccharomyces boulardii 250 mg 250 mg PO .QD 07/23/21 08/03/22 History capsule (Daily Probiotic (S. boulardii)) cholecalciferol (vitamin D3) 250 250 mcg PO DAILY 10/14/21 08/03/22 History mcg (10,000 unit) capsule bupropion HCl 150 mg 24 hr tablet, 150 mg PO QAM #30 tabs 07/02/22 08/03/22 Rx extended release (Wellbutrin XL) insulin NPH isoph U-100 human 100 14 unit subcut HS 07/14/22 08/03/22 History unit/mL subcutaneous suspension (Humulin N NPH U-100 Insulin (isophane susp)) nifedipine 10 mg capsule 20 mg PO Q6HR 17 days #68 caps 07/14/22 08/03/22 Rx sertraline 100 mg tablet 100 mg PO DAILY 07/21/22 08/03/22 History hydroxyzine HCl 25 mg tablet 25 mg PO BID PRN Anxiety 07/24/22 08/03/22 History prenat.vits,cali,avv-qynk-rpkhb 1 tablet PO DAILY 07/24/22 08/03/22 History trazodone 50 mg tablet 50 mg PO HS PRN Sleep 07/24/22 07/24/22 History Laboratory Tests 08/02/22 08/02/22 08/02/22 22:23 22:28 22:28 WBC 13.0 K/mm3 H K/mm3 (4.5-10.0) RBC 3.39 M/mm3 L M/mm3 (4.2-5.4) Hgb 10.4 g/dL L D g/dL (12.0-15.0) Hct 31.2 % L % (37.0-47.0) MCV 92.0 fl fl (80-100) MCH 30.7 pg pg (26-34) MCHC 33.3 g/dl g/dl (32-36) RDW 13.4 % % (11.5-14.5) Plt Count 224 k/mm3 k/mm3 (150-375) MPV 10.6 fl H fl (7.4-10.4) Immature Gran % (Auto) 1.2 % H % (0-0.5) Neut % (Auto) 67.1 % % (45.5-73.1) Lymph % (Auto) 23.5 % % (18.3-44.2) Young % (Auto) 7.5 % % (2.6-8.5) Eos % (Auto) 0.5 % % (0-4.4) Baso % (Auto) 0.2 % % (0.2-1.2) Lymph # (Auto) 3.05 K/mm3 K/mm3 (0.9-3.2) Young # (Auto) 1.0 K/mm3 H K/mm3 (0.1-0.6) Eos # (Auto) 0.1 K/mm3 K/mm3 (0-0.3) Baso # (Auto) 0.0 K/mm3 K/mm3 (0.0-0.1) Abs Immat Gran (auto) 0.16 K/mm3 H K/mm3 (0.00-0.031) Absolute Neuts (auto) 8.7 K/mm3 H K/mm3 (1.3-6.7) Absolute Nucleated RBC 0.0 K/mm3 K/mm3 (0.0-0.012) Nucleated RBC % 0.0 % % (0.0-0.2) Sodium Potassium Chloride Carbon Dioxide Anion Gap BUN Creatinine Estim Creat Clear Calc Estimated GFR Glucose POC Capillary Glucose 118 mg/dl H mg/dl (65-105) Calcium Total Bilirubin AST ALT Alkaline Phosphatase Total Protein Albumin RPR Pending HIV 1&2 Ab/P24 Ag 4thGn Blood Type Antibody Screen 08/02/22 08/02/22 08/02/22 22:28 22:28 22:28 WBC RBC Hgb Hct MCV MCH MCHC RDW Plt Count MPV Immature Gran % (Auto) Neut % (Auto) Lymph % (Auto) Young % (Auto) Eos % (Auto) Baso % (Auto) Lymph # (Auto) Young # (Auto) Eos # (Auto) Baso # (Auto) Abs Immat Gran (auto) Absolute Neuts (auto) Absolute Nucleated RBC Nucleated RBC
[2022-08-03 07:59] LABS: Amphetamine Screen Urine Negative (Negative); Barbiturate Screen Urine Negative (Negative); Benzodiazepines Screen Urine Negative (Negative); Cannabinoid Screen Urine Negative (Negative); Cocaine Screen Urine Negative (Negative); Methadone Screen Urine Negative (Negative); Opiate Screen Urine Negative (Negative); Phencyclidine Screen Urine Negative (Negative)
--- NOTE | 2022-08-03 08:05 | WPDHPUPDATE1 ---
History and Physical Update Update Date/Time: 08/03/22 08:05 History and Physical has been reviewed, including an updated exam of the patient. There are NO changes in the patient's condition. Risks, benefits, and alternatives have been discussed and questions answered. Patient agrees to proceed with procedure.
--- NOTE | 2022-08-03 08:05 | PM.IMHP ---
H&P: HPI History of Present Illness Date/Time: 08/03/22 08:05 Chief Complaint: unstable lie with polyhydramnios Narrative: The patient is a 32-year-old 7 para 4 aborta 2 admitted at 37 1/ 7 with decreased movement yesterday. Patient with gestational diabetes insulin requiring and polyhydramnios. At her most recent ultrasound with [facility], they recommended delivery between 37 and 38 weeks. Patient was initially scheduled for induction of labor tomorrow. Ultrasound done yesterday revealed variable lie during the biophysical profile. Dopplers were also borderline elevated. Discussed with the patient and recommended delivery by due to unstable lie. Patient voiced understanding and agrees to the plan. Prior to the testing coming back yesterday evening the staff the lab the patient to eat a full meal. Therefore , we are doing the this morning instead of last evening. heart tones throughout the evening were reactive. labs O positive, rubella immune, RPR negative, hepatitis-B surface antigen negative, RPR negative, HIV negative x2, and group B strep negative. The was complicated by threatened labor and the patient had been on Procardia until 36 weeks. Review of Systems Constitutional: Constitutional: Reports fatigue Gastrointestinal: Comments: Feeling increased movement today compared to yesterday PMFSH Past Medical History Medical History (Updated 08/03/22 @ 08:14 by Michelle Stephen MD) Anxiety Constipation Gestational diabetes (normal spontaneous vaginal delivery) X4 gestational diabetes with 3 and 4 preeclampsia with 4 Obesity Surgical History Surgical History (Updated 08/03/22 @ 08:11 by Michelle Stephen MD) History of eye surgery History of tonsillectomy and adenoidectomy Family History Family History (Updated 07/24/22 @ 14:47 by Julianne Kang RN) Sibling Crohn's disease Mother Hypertension Social History Social History (Updated 08/03/22 @ 08:13 by Michelle Stephen MD) Smoking status: Current some day smoker Tobacco type: cigars Second hand tobacco smoke exposure: No Additional smoking assessment comments: smokes 2 cigars a day Alcohol intake: current Alcohol use details: rarely Substance use: current Substance use type: other Other substance usage details: marijuana Spiritual care concerns: No Meds Home Medications and Allergies Home Medications Medication Instructions Recorded Confirmed Type Saccharomyces boulardii 250 mg 250 mg PO .QD 07/23/21 08/03/22 History capsule (Daily Probiotic (S. boulardii)) cholecalciferol (vitamin D3) 250 250 mcg PO DAILY 10/14/21 08/03/22 History mcg (10,000 unit) capsule bupropion HCl 150 mg 24 hr tablet, 150 mg PO QAM #30 tabs 07/02/22 08/03/22 Rx extended release (Wellbutrin XL) insulin NPH isoph U-100 human 100 14 unit subcut HS 07/14/22 08/03/22 History unit/mL subcutaneous suspension (Humulin N NPH U-100 Insulin (isophane susp)) nifedipine 10 mg capsule 20 mg PO Q6HR 17 days #68 caps 07/14/22 08/03/22 Rx sertraline 100 mg tablet 100 mg PO DAILY 07/21/22 08/03/22 History hydroxyzine HCl 25 mg tablet 25 mg PO BID PRN Anxiety 07/24/22 08/03/22 History prenat.vits,cali,ran-cxsk-xqamg 1 tablet PO DAILY 07/24/22 08/03/22 History trazodone 50 mg tablet 50 mg PO HS PRN Sleep 07/24/22 07/24/22 History Allergies Allergy/AdvReac Type Severity Reaction Status Date / Time vancomycin Allergy Mild Unknown Verified 08/02/22 23:12 Vital Signs Vital Signs - 24 hr 08/02/22 22:07 08/02/22 22:16 08/03/22 05:50 Pulse Rate 76 77 79 Blood Pressure 119/68 120/70 118/58 L Oxygen Delivery 08/03/22 02:14 Pulse Rate Blood Pressure Oxygen Delivery Room Air Exam Const: General: comfortable, no acute distress, alert and awake Resp: Effort & Ins
[2022-08-03] MEDS: ceFAZolin 2 GM/D5W 50 ML 2 GM/50 ML BAG IVPB (08:18)
--- NOTE | 2022-08-03 09:06 | P.OP_ITS ---
Procedure Note - Detailed Date of Procedure 08/03/22 Pre-op Diagnosis Intrauterine at 37 1/7 gestational diabetes insulin requiring polyhydramnios unstable lie borderline Dopplers Post-op Diagnosis Same Procedure Performed primary low-transverse section Surgeon Michelle Stephen MD Anesthesia Spinal Findings is initially at the vertex presentation. After rupture of membranes, the infant flipped to double footling breech presentation. The male infant weighing 7lb 5oz Apgars yet to be determined by pediatric staff. Normal- appearing tubes, ovaries, uterus. Amniotic fluid 2250 cc. Description of Procedure The patient was taken to the operating room and placed under anesthesia in the dorsal supine position with a leftward tilt. The patient was prepped and draped in usual sterile fashion. Once anesthesia was deemed adequate, a Pfannenstiel skin incision is made with a scalpel and carried down to the underlying layer of fascia which was nicked in the midline. The incision was extended laterally using Reid scissors. Ochsner was used to tent the fascia which was dissected off using sharp and blunt dissection. Bleeding vessels in the subcutaneous tissue are cauterized. The rectus muscles are in the midline and the peritoneum tented and entered with Metzenbaum. The incision was extended with blunt traction. The bladder blade is placed and the vesicouterine peritoneum tented with a Peon and entered with Metzenbaum scissors. The incision extended laterally and the bladder flap created digitally. The bladder blade is replaced. Palpating lower uterine segment it feels to be vertex presentation. The lower uterine segment was incised in a transverse fashion with the scalpel and extended laterally using blunt traction. Vertex position is verified. The membranes are ruptured and copious amounts of clear fluid are noted. The 's rotated itself to the double footling breech presentation. Therefore, the feet are grasped and delivered through the incision. The special education teaching assistant applied fundal pressure until the infant reached the scapula. The infant was then rotated and the right arm delivered spontaneously. The infant was rotated and the left arm is splinted and delivered. The is extended on the abdomen and the head delivered spontaneously. The infant is noted to be tangled in its cord around the arm and body. The is detangled and the cord clamped and cut and handed to the waiting nursery nurse. The cord blood was taken for gases and labs. The placenta was removed using manual traction. The uterus is cleared of all clots and debris and exteriorized. The uterine incision was closed using 0 Monocryl in a running locked fashion with the same suture used to imbricate. Two additional [id number] sutures are required in the midline for hemostasis. The cul-de-sac is irrigated and the uterus returned to the abdomen. The gutters are irrigated and the incision was again inspected noted to be hemostatic. The fascia was closed using 0 Vicryl in a running fashion. The subcutaneous tissues are irrigated and noted to be hemostatic. Skin incision was closed using 4-0 Vicryl in a subcuticular fashion. Dermaflex was placed over the incision. Sponge, needle, and instrument counts are correct per the OR staff. Patient was taken to recovery in stable condition. Anesthesia informed me that the forgot to give the Astramorph therefore the patient will be given a TREASURY AGENT for pain control. Estimated Blood Loss 456 Drains Yes ( Fair catheter) Pathology Yes ( placenta) Complications No immediate complications Condition Stable Disposition Floor
--- NOTE | 2022-08-03 09:14 | PM.OBDSVD ---
DS: Admitting Diagnosis Discharge Date 08/06/22 Admitting Diagnosis intrauterine at 37 1/7 weeks gestational diabetes insulin requiring polyhydramnios borderline Dopplers unstable lie DS: Discharge Diagnosis Discharge Diagnosis (1) delivery delivered: Code(s): O82 - Encounter for delivery without indication Status: Acute (2) Polyhydramnios: Code(s): O40.9XX0 - Polyhydramnios, unspecified trimester, not applicable or unspecified Status: Acute (3) Unstable lie: Code(s): O32.0XX0 - Maternal care for unstable lie, not applicable or unspecified Status: Acute (4) GDM, class A2: Code(s): O24.419 - Gestational diabetes mellitus in , unspecified control Status: Acute (5) 37 weeks gestation of : Code(s): Z3A.37 - 37 weeks gestation of Status: Acute OB - DS: Summary OB Procedures : NST, Ultrasound and PTL Mgmt OB Procedures Intrapartum: low cervical, transverse OB Procedures: : None Peripartum Data Delivery Method: Section Procedures: Procedures Operation Date: 08/03/22 08:30 <No data on this case meets the specified criteria> complications: none Status at Discharge Functional status at discharge: independent ambulation Overall status at discharge: patient is progressing back to baseline Time Spent with Patient Time attestation: Total time spent providing and/or coordinating discharge services: DS: Data Data Completed and Pending Labs on day of discharge: Labs from last 24 hours 08/03/22 08/03/22 08/02/22 07:19 05:50 22:28 WBC RBC Hgb Hct MCV MCH MCHC RDW Plt Count MPV Immature Gran % (Auto) Neut % (Auto) Lymph % (Auto) [place] % (Auto) Eos % (Auto) Baso % (Auto) Lymph # (Auto) [place] # (Auto) Eos # (Auto) Baso # (Auto) Abs Immat Gran (auto) Absolute Neuts (auto) Absolute Nucleated RBC Nucleated RBC % Sodium Potassium Chloride Carbon Dioxide Anion Gap BUN Creatinine Estim Creat Clear Calc Estimated GFR Glucose POC Capillary Glucose 88 Calcium Total Bilirubin AST ALT Alkaline Phosphatase Total Protein Albumin Urine Opiates Screen Negative Urine Methadone Screen Negative Ur Barbiturates Screen Negative Ur Phencyclidine Scrn Negative Ur Amphetamine Screen Negative U Benzodiazepines Scrn Negative Urine Cocaine Screen Negative U Cannabinoids Screen Negative RPR HIV 1&2 Ab/P24 Ag 4thGn Negative Blood Type Antibody Screen 08/02/22 08/02/22 08/02/22 22:28 22:28 22:28 WBC RBC Hgb Hct MCV MCH MCHC RDW Plt Count MPV Immature Gran % (Auto) Neut % (Auto) Lymph % (Auto) [place] % (Auto) Eos % (Auto) Baso % (Auto) Lymph # (Auto) [place] # (Auto) Eos # (Auto) Baso # (Auto) Abs Immat Gran (auto) Absolute Neuts (auto) Absolute Nucleated RBC Nucleated RBC % Sodium 134 L Potassium 3.3 L Chloride 108 H Carbon Dioxide 19 L Anion Gap 7 L BUN 6 L Creatinine 0.70 Estim Creat Clear Calc Not Reportable Estimated GFR > 60 Glucose 117 H POC Capillary Glucose Calcium 8.7 Total Bilirubin 0.2 AST 17 ALT 13 Alkaline Phosphatase 113 Total Protein 6.0 L Albumin 3.2 L Urine Opiates Screen Urine Methadone Screen Ur Barbiturates Screen Ur Phencyclidine Scrn Ur Amphetamine Screen U Benzodiazepines Scrn Urine Cocaine Screen U Cannabinoids Screen RPR Pending HIV 1&2 Ab/P24 Ag 4thGn Blood Type O Positive Antibody Screen Negative 08/02/22 08/02/22 22:28 22:23 WBC 13.0 H RBC 3.39 L Hgb 10.4 L D Hct 31.2 L MCV 92.0 MCH 30.7 MCHC 33.3 RDW 13.4 Plt Count 224 MPV
[2022-08-03 09:21] LABS: Rapid Plasma Reagin Non-Reactive (NonReactive)
[2022-08-03] MEDS: fentaNYL CITRATE INJ (*CRX) 100 MCG/2 ML VIAL 25 MCG IV PUSH ×2 (11:06→11:17)
[2022-08-03] MEDS: SERTRALINE HCL 50 MG TABLET 100 MG PO (12:05)
[2022-08-03] MEDS: buPROPion HCL XL (24 HR) 150 MG TABCR PO (12:05)
--- NOTE | 2022-08-03 12:08 | PC.NURSE ---
Patient transferred to post room #292 via stretcher. Support person present. Oriented to unit, room, information board, rooming in, admission packet and security measures. Patient verbalizes understanding.
[2022-08-03] MEDS: FENTANYL 600MCG/NS30MLPCA(*CRX 600 MCG/30 ML PCA.VIAL IV CONT (12:26)
[2022-08-03] MEDS: DEXTROSE 5%/0.45% SOD CHL 1,000 ML 125 ML IV CONT (14:08)
[2022-08-03] MEDS: KETOROLAC 30 MG/ML VIAL (*BKC) IV PUSH ×2 (14:09→20:40)
[2022-08-03] MEDS: HYDROcodone/acetaminophen (*CRX) 10-325 MG TABLET 1 TAB PO (20:40)
[2022-08-03] MEDS: SIMETHICONE 80 MG TAB.CHEW PO (20:43)
--- NOTE | 2022-08-03 21:50 | PC.NURSE ---
To Nursery per wheelchair.
--- NOTE | 2022-08-03 22:35 | PC.NURSE ---
Returned to room from seeing in Level II Nursery. Breast pump use discussed. Pumping initiated.
--- NOTE | 2022-08-03 23:12 | PC.NURSE ---
[facility] transport team at bedside with .
[2022-08-04] VITALS: BP 116/70; PULSE 78; RESP 18; TEMP 36.8
[2022-08-04] MEDS: HYDROcodone/acetaminophen (*CRX) 10-325 MG TABLET 1 TAB PO ×7 (00:07→23:33)
[2022-08-04] MEDS: traZODone HCL 50 MG TABLET PO ×2 (00:07→23:34)
[2022-08-04] MEDS: IBUPROFEN 600 MG TABLET PO ×4 (04:02→23:33)
[2022-08-04 04:30] VITALS: BP 131/78; PULSE 75; RESP 18; TEMP 37
[2022-08-04 04:46] LABS: Basophils Percent Auto 0.2 % (0.2-1.2); Eosinophils Absolute Auto 0.1 K/mm3 (0-0.3); Eosinophils Percent Auto 0.3 % (0-4.4); Hematocrit 26.3 % (37.0-47.0); Hemoglobin 8.6 g/dL (12.0-15.0); Immature Granulocyte Absolute 0.12 K/mm3 (0.00-0.031); Immature Granulocyte Percent A 0.8 % (0-0.5); Lymphocytes Absolute Auto 3.89 K/mm3 (0.9-3.2); Lymphocytes Percent Auto 26.4 % (18.3-44.2); Mean Corpuscular HGB Conc 32.7 g/dl (32-36); Mean Corpuscular Hemoglobin 31.2 pg (26-34); Mean Corpuscular Volume 95.3 fl (80-100); Mean Platelet Volume 10.8 fl (7.4-10.4); Monocytes Absolute Auto 1.2 K/mm3 (0.1-0.6); Monocytes Percent Auto 7.8 % (2.6-8.5); Neutrophils Absolute Auto 9.5 K/mm3 (1.3-6.7); Neutrophils Percent Auto 64.5 % (45.5-73.1); Platelet Count Result 202 k/mm3 (150-375); Red Blood Count 2.76 M/mm3 (4.2-5.4); Red Cell Distribution Width 13.2 % (11.5-14.5); White Blood Count 14.7 K/mm3 (4.5-10.0)
[2022-08-04] MEDS: MULTIVIT/MIN/PREN/FOL AC/IRON TABLET 1 TAB PO (07:37)
[2022-08-04] MEDS: buPROPion HCL XL (24 HR) 150 MG TABCR PO (07:37)
[2022-08-04] MEDS: SERTRALINE HCL 50 MG TABLET 100 MG PO (07:37)
[2022-08-04] MEDS: POLYSACCHARIDE IRON COMPLEX 150 MG CAPSULE PO ×2 (07:38→16:17)
[2022-08-04] MEDS: DOCUSATE SODIUM 100 MG CAPSULE PO ×2 (07:38→16:17)
[2022-08-04] MEDS: LANOLIN (LANSINOH) 7.5 GM CREAM 1 APPLIC TOPICAL (07:41)
--- NOTE | 2022-08-04 07:54 | P.PNOB_ITS ---
OB - PN: Subj Subjective Date/time seen: 08/04/22 07:54. Patient comments: pain well controlled [place] baby status: NICU (transferred) feeding status: other (Exclusively pumping) Narrative: Resting in bed, eating a cracker. Partner present and supportive. Cheerful affect. Reports walking in the [place] without dizziness. OB - PN: Obj Data Labs CBC & Chem 7: 08/04/22 03:57 08/02/22 22:28 Labs: Laboratory Results - last 24 hr 08/02/22 08/03/22 08/04/22 22:28 07:19 03:57 WBC 14.7 H RBC 2.76 L Hgb 8.6 L Hct 26.3 L MCV 95.3 MCH 31.2 MCHC 32.7 RDW 13.2 Plt Count 202 MPV 10.8 H Immature Gran % (Auto) 0.8 H Neut % (Auto) 64.5 Lymph % (Auto) 26.4 [place] % (Auto) 7.8 Eos % (Auto) 0.3 Baso % (Auto) 0.2 Lymph # (Auto) 3.89 H [place] # (Auto) 1.2 H Eos # (Auto) 0.1 Baso # (Auto) 0.0 Abs Immat Gran (auto) 0.12 H Absolute Neuts (auto) 9.5 H Absolute Nucleated RBC 0.0 Nucleated RBC % 0.0 Urine Opiates Screen Negative Urine Methadone Screen Negative Ur Barbiturates Screen Negative Ur Phencyclidine Scrn Negative Ur Amphetamine Screen Negative U Benzodiazepines Scrn Negative Urine Cocaine Screen Negative U Cannabinoids Screen Negative RPR Non-reactive OB - PN A/P Plan day: 1 Plan: routine care Comments: Will give pass to visit baby. Time Spent With Patient Time: Total time spent is greater than 50% in coordination of care (as documented) at patient's floor/unit and/or counseling patient: Review of Systems Review of Systems: All systems reviewed & are unremarkable except as noted in HPI and below Exam Const: General: comfortable and no acute distress Orientation/consciou sness: patient oriented x3 Limitations: no limitations Resp: Effort & Inspection: normal respiratory effort and able to speak in complete sentences Auscultation: clear to auscultation bilaterally Cardio: Rate: regular rate Peripheral pulses: Peripheral pulses 2+ throughout GI: Inspection: normal to inspection GI Palp: Yes Soft to palpation Auscultation: normal bowel sounds : General: Yes bladder normal to palpation Bimanual exam- vagina & uterus: bladder normal to palpation Other: Fundus firm Skin: General skin exam: normal color Other: Incision Neuro: General: patient oriented x3 Cognition (Neuro): normal cognition Speech: normal speech Extrem: General: normal to inspection Psych: Appearance: grossly normal Mental Status: mental status grossly normal Speech and movement: Normal speech and movement present Affect: normal affect Attitude: cooperative Thought process: Normal thought process present
[2022-08-04 08:00] VITALS: BP 118/78; PULSE 74; RESP 18; TEMP 36.3; O2SAT 100
--- NOTE | 2022-08-04 08:47 | WPDANLDNPN2 ---
Anes-Prog Note L&D-Neuraxial Date/Time: 08/04/22 08:47 Neuraxial medications: intrathecal PF morphine Opiod-related complaints: none Patient feedback: Patient satisfied with post-operative pain management.
--- NOTE | 2022-08-04 08:47 | WPDANESPN ---
Anes - Prog Note Post-Op Date/Time: 08/04/22 08:47 Cardiovascular status: normal Respiratory status: normal Airway patency: baseline Mental status: baseline Post-Op hydration status: normal Vital Signs: Last Vital Signs Temp 37.0 C 08/04/22 04:30 Pulse 75 08/04/22 04:30 Resp 18 08/04/22 04:30 BP 131/78 08/04/22 04:30 Pulse Ox 99 08/03/22 20:40 O2 Del Method Room Air 08/04/22 04:34 Pain Score (VAS): 0 I/O: Intake & Output 08/03/22 08/04/22 08/04/22 23:59 07:59 15:59 Intake Total 3340 2500 Output Total 2525 2000 Balance 815 500 Laboratory Tests 08/04/22 03:57 08/02/22 22:28 08/02/22 08/04/22 22:28 03:57 WBC 14.7 H RBC 2.76 L Hgb 8.6 L Hct 26.3 L MCV 95.3 MCH 31.2 MCHC 32.7 RDW 13.2 Plt Count 202 MPV 10.8 H Immature Gran % (Auto) 0.8 H Neut % (Auto) 64.5 Lymph % (Auto) 26.4 [place] % (Auto) 7.8 Eos % (Auto) 0.3 Baso % (Auto) 0.2 Lymph # (Auto) 3.89 H [place] # (Auto) 1.2 H Eos # (Auto) 0.1 Baso # (Auto) 0.0 Abs Immat Gran (auto) 0.12 H Absolute Neuts (auto) 9.5 H Absolute Nucleated RBC 0.0 Nucleated RBC % 0.0 RPR Non-reactive Post-procedural complaints: none Patient Feedback: Patient satisfied with anesthetic care.
--- NOTE | 2022-08-04 11:53 | PC.NURSE ---
1130 Pt and left on pass to see baby at [facility]. Pt left unit via wheelchair. Expresses understanding to return to unit in 6 hours.
[2022-08-04] MEDS: SIMETHICONE 80 MG TAB.CHEW PO (16:16)
[2022-08-04 19:10] VITALS: BP 121/72; PULSE 75; RESP 16; TEMP 36.7
[2022-08-04] MEDS: hydrOXYzine HCL 25 MG TABLET PO (19:43)
--- NOTE | 2022-08-05 07:00 | PC.NURSE ---
PT introductions made and plan of care discussed per post , post op c section, pain management, pumping, daily care activities. PT and significant other both recipients of such instructions and received instructions per one to one discussion, mom baby care guide, and demonstrations this shift. PT shows no barriers to learning and verbalized understanding of such care.
--- NOTE | 2022-08-05 07:43 | PM.OBPNVD ---
OB - PN: Subj Subjective Date/time seen: 08/05/22 07:43 Patient comments: no complaints and pain well controlled baby status: doing well (improving ) OB - PN: Obj Data Labs CBC & Chem 7: 08/04/22 03:57 08/02/22 22:28 OB - PN A/P Plan day: 2 Plan: routine care Comments: will go on pass again today to see infant wants to wait until tomorrow for dc Time Spent With Patient Time: Total time spent is greater than 50% in coordination of care (as documented) at patient's floor/unit and/or counseling patient: Exam Narrative: inc c/d/i : Bimanual exam- vagina & uterus: other (Uterus firm, nt @U)
[2022-08-05 08:25] VITALS: BP 128/80; PULSE 68; RESP 18; TEMP 36.3; O2SAT 100
[2022-08-05] MEDS: IBUPROFEN 600 MG TABLET PO ×3 (08:37→21:40)
[2022-08-05] MEDS: POLYSACCHARIDE IRON COMPLEX 150 MG CAPSULE PO ×2 (08:37→21:43)
[2022-08-05] MEDS: SIMETHICONE 80 MG TAB.CHEW PO ×3 (08:38→15:37)
[2022-08-05] MEDS: DOCUSATE SODIUM 100 MG CAPSULE PO ×2 (08:38→21:43)
[2022-08-05] MEDS: HYDROcodone/acetaminophen (*CRX) 10-325 MG TABLET 1 TAB PO ×4 (08:38→21:41)
[2022-08-05] MEDS: SERTRALINE HCL 50 MG TABLET 100 MG PO (08:39)
[2022-08-05] MEDS: MULTIVIT/MIN/PREN/FOL AC/IRON TABLET 1 TAB PO (08:39)
[2022-08-05] MEDS: buPROPion HCL XL (24 HR) 150 MG TABCR PO (08:39)
[2022-08-05 08:45] VITALS: PULSE 68; RESP 18; O2SAT 100
--- NOTE | 2022-08-05 16:00 | PC.NURSE ---
PT left via wheelchair accompanied by significant other and taken to waiting car. [facility]
--- NOTE | 2022-08-05 21:33 | PC.NURSE ---
Patient returned from [facility] to [facility] at 2132, accompanied by her significant other.
[2022-08-05 21:40] VITALS: BP 140/75; PULSE 75; RESP 18; TEMP 36.5
[2022-08-05] MEDS: traZODone HCL 50 MG TABLET PO (21:43)
[2022-08-06] MEDS: IBUPROFEN 600 MG TABLET PO (03:55)
[2022-08-06] MEDS: HYDROcodone/acetaminophen (*CRX) 10-325 MG TABLET 1 TAB PO ×2 (03:56→08:28)
--- NOTE | 2022-08-06 07:55 | P.PNOB_ITS ---
OB - PN: Subj Subjective Date/time seen: 08/06/22 07:55 Patient comments: no complaints and pain well controlled baby status: doing well and other (at [facility]) OB - PN: Obj Data Labs CBC & Chem 7: 08/04/22 03:57 08/02/22 22:28 OB - PN A/P Plan day: 3 Plan: routine care, discharge home and other (plans condoms until IUD) Time Spent With Patient Time: Total time spent is greater than 50% in coordination of care (as documented) at patient's floor/unit and/or counseling patient: Exam Narrative: inc c/d/i : Bimanual exam- vagina & uterus: other (Uterus firm, nt @U)
[2022-08-06] MEDS: DOCUSATE SODIUM 100 MG CAPSULE PO (08:28)
[2022-08-06] MEDS: POLYSACCHARIDE IRON COMPLEX 150 MG CAPSULE PO (08:28)
[2022-08-06] MEDS: MULTIVIT/MIN/PREN/FOL AC/IRON TABLET 1 TAB PO (08:28)
[2022-08-06] MEDS: buPROPion HCL XL (24 HR) 150 MG TABCR PO (08:28)
[2022-08-06] MEDS: SERTRALINE HCL 50 MG TABLET 100 MG PO (08:28)
[2022-08-06 09:00] VITALS: BP 125/81; PULSE 63; RESP 18; TEMP 36.6; O2SAT 99
[2022-08-07 10:11] VITALS: BP 140/77; PULSE 76; RESP 20; TEMP 36.9; O2SAT 99
== END 2022-08-06 11:03 | disposition home or self-care (01) | DRG 540 ==
LOC: ANHOBPP 08-03 09:16 → ANHOB2 08-03 12:11
PROVIDERS: Admitting Provider Obstetrics & Gynecology Gynecology; PCP Family Medicine; Visit Provider Obstetrics & Gynecology Gynecology
PROC: 10D00Z1 Extraction of Products of Conception, Low, Open Approach (ICD-10-PCS; CPT 59514; principal; 2022-08-03 08:30)
DX: O24.424 Gestational diabetes mellitus in childbirth, insulin controlled (principal); O40.3XX0 Polyhydramnios, third trimester, not applicable or unspecified; O32.8XX0 Maternal care for other malpresentation of fetus, not applicable or unspecified; O32.0XX0 Maternal care for unstable lie, not applicable or unspecified; Z37.0 Single live birth; Z3A.37 37 weeks gestation of pregnancy
CPT/HCPCS: 36415; 80053; 80307; 82948; 85025; 86592; 86703; 86850; 86900; 86901; 88307; A9270; G0432; J0131; J0690; J1100; J1815; J1885; J2274; J2405; J3010; J7120

== ENCOUNTER 2022-08-02 15:15 | Outpatient (RCR) | payer OTHER, SELFPAY ==
--- NOTE | ~2022-08-02 | US_ITS ---
EXAMINATION: US OB limited w BPP, US umbilical doppler DATE: 08/02/2022 17:53 INDICATION: Evaluate BPP and MAYITO, heart rate decelerations. TECHNIQUE: Real-time ultrasound of the pelvis was performed. COMPARISON: 04/12/2022 and 03/03/2020. FINDINGS: There is a single living fetus in variable presentation. The placenta is anterior. heart rate is 129 beats per minute (bpm). The amniotic fluid index is 24.3 cm, which is borderline elevated (5th to 95th percentile range is 7.5 to 24.4 cm).] macro biometrics Biophysical profile performed by the technologist: breathing (30 sec sustained breathing in 30 minutes): 2 out of 2 movement (3 gross body movements in 30 minutes: 2 out of 2 tone (one episode of tekwnst-zdemfzlgu-izmokfq limb movement): 2 out of 2 Amniotic fluid pocket (2 cm): 2 out of 2 Total score: 8 out of 8 Umbilical artery pulsed Doppler demonstrates peak systolic to end-diastolic velocity ratios (S/D rati os) of 2.4 and 3.4 near the fetus, 2.1 and 2.3 in the mid cord, and 1.7 and 1.9 near the placenta (5t h percentile = 1.9, 95th percentile = 3.2). IMPRESSION: 1. Single living fetus in variable presentation.] 2. Umbilical artery Doppler values detailed above. 3. Biophysical profile 8 out of 8. 4. Borderline elevated MAYITO of 24.3 cm Reviewed, dictated and finalized at location K. IMPRESSION: 1. Single living fetus in variable presentation.] 2. Umbilical artery Doppler values detailed above. 3. Biophysical profile 8 out of 8. 4. Borderline elevated MAYITO of 24.3 cm
== END 2022-10-31 23:59 | disposition home or self-care (01) ==
LOC: ANHOBOP 15:15
PROVIDERS: PCP Family Medicine; Visit Provider Obstetrics & Gynecology Gynecology
DX: O24.419 Gestational diabetes mellitus in pregnancy, unspecified control (principal); Z3A.00 Weeks of gestation of pregnancy not specified
CPT/HCPCS: 76815; 76819; 76820

== ENCOUNTER 2023-01-11 10:00 | Outpatient (CLI) | payer OTHER, SELFPAY ==
--- NOTE | ~2023-01-11 | US_ITS ---
Pelvic ultrasound. Clinical History: Abnormal uterine bleeding Technique: Realtime transabdominal and transvaginal scanning of the pelvis was performed. Color flow Doppler and Doppler spectral analysis were performed. Findings: The uterus is retroverted. The endometrial stripe has a thickness of 9 mm. Minimal fluid p resent in the endometrial cavity. IUD in place in the endometrial cavity. No focal mass is identified . The right ovary measures 2.5 x 1.9 x 2.4 cm. No significant right ovarian or adnexal mass is seen. The left ovary measures 2.9 x 1.9 x 2.2 cm. No significant left ovarian or adnexal mass is seen. Vascular flow present in both ovaries on Doppler spectral analysis. There is no evidence of free fluid in the cul de sac. Impression: IUD in place. Minimal simple appearing fluid in the endometrial cavity, nonspecific. Reviewed, dictated and finalized at [facility]. Impression: IUD in place. Minimal simple appearing fluid in the endometrial cavity, nonspecific.
== END 2023-01-11 10:01 | disposition home or self-care (01) ==
PROVIDERS: PCP Family Medicine; Visit Provider Nurse Practitioner
DX: N93.8 Other specified abnormal uterine and vaginal bleeding (principal); Z97.5 Presence of (intrauterine) contraceptive device
CPT/HCPCS: 76830; 76856

== ENCOUNTER 2023-07-03 20:41 | Emergency (ER) | payer OTHER, SELFPAY ==
--- NOTE | ~2023-07-03 | XR_ITS ---
EXAM: XR knee LT 3V DATE: 07/03/2023 21:09 HISTORY: pain TO ANTERIOR KNEE THAT RADIATES DOWN LEG . COMPARISON: None available. FINDINGS: Normal mineralization. No fracture or dislocation. No lytic or blastic lesion. Joint space s are maintained. No erosion or periosteal change. Soft tissues within normal limits. IMPRESSION: No acute osseous finding in the left knee. Reviewed, dictated and finalized at location K.
[2023-07-03 20:45] VITALS: BP 114/66; PULSE 73; RESP 16; TEMP 36.4; O2SAT 99
--- NOTE | 2023-07-04 01:14 | PC.NURSE ---
Pt called for room, no answer
== END 2023-07-04 01:14 | disposition left against medical advice (07) ==
PROVIDERS: Emergency Provider Emergency Medicine; PCP Family Medicine
DX: M25.562 Pain in left knee (principal)
CPT/HCPCS: 73562; 99199

== ENCOUNTER 2023-09-30 16:36 | Emergency (ER) | payer OTHER, SELFPAY ==
[2023-09-30 16:44] VITALS: BP 108/64; PULSE 74; RESP 16; TEMP 36.9; O2SAT 100
--- NOTE | 2023-09-30 17:05 | ED.URI ---
HPI - URI/Sore Throat General Chief Complaint: Upper Respiratory Infection Stated Complaint: Cough Time Seen by Provider: 09/30/23 16:51 Source: patient and RN notes reviewed Mode of arrival: ambulatory Limitations: no limitations History of Present Illness HPI Narrative: Patient presents today complaining of a 3 week history of nasal congestion productive cough, fatigue, rhinorrhea. Reports more recent development of left ear pain. She does also report some intermittent wheezing over the past couple of days. Denies fever, shortness of breath, sore throat. She has been taking Robitussin and Mucinex with mild relief. Denies history of asthma or COPD. Smokes 1.5 Black and Milds daily. Related Data Home Medications Medication Instructions Recorded Confirmed Saccharomyces boulardii 250 mg 250 mg PO .QD 07/23/21 09/30/23 capsule (Daily Probiotic (S. boulardii)) cholecalciferol (vitamin D3) 250 250 mcg PO DAILY 10/14/21 09/30/23 mcg (10,000 unit) capsule trazodone 50 mg tablet 100 mg PO HS PRN Sleep 09/01/22 09/30/23 Allergies Allergy/AdvReac Type Severity Reaction Status Date / Time vancomycin AdvReac Intermediate Hives Verified 09/30/23 16:39 Review of Systems Review of Systems: CONSTITUTIONAL: Denies body aches, fever, chills, or sweats.+ foot take EYES: Denies visual changes, redness, or discharge. ENT: Denies sore throat, or otalgia.+ rhinorrhea, congestion CARDIOVASCULAR: Denies chest pain, palpitations, or edema. RESPIRATORY: Denies dyspnea.+ cough, wheezing GASTROINTESTINAL: Denies abdominal pain, nausea, vomiting, or diarrhea. GENITOURINARY: Denies dysuria or hematuria. SKIN: Denies rash, itching, or wounds. MUSCULOSKELETAL: Denies back pain, joint pain, or myalgia. NEUROLOGIC: Denies headache, numbness, tingling, or weakness. PSYCH: Denies depression or anxiety. [facility] Past Medical History Medical History Anxiety BMI 29.0-29.9,adult BMI 32.0-32.9,adult Constipation Gestational diabetes (normal spontaneous vaginal delivery) X4 gestational diabetes with 3 and 4 preeclampsia with 4 Obesity Surgical History Surgical History H/O section History of eye surgery History of tonsillectomy and adenoidectomy Family History Family History Sibling Crohn's disease Mother Hypertension Father No problems noted. Social History Social History Smoking status: Current some day smoker Tobacco type: cigars Second hand tobacco smoke exposure: No Additional smoking assessment comments: smokes 2 cigars a day Alcohol intake: current Alcohol use details: rarely Substance use: current Substance use type: marijuana Other substance usage details: marijuana Lack of Transportation: No Lack of Food: Never True Current Housing: I Have Housing Concerned About Future Housing: No Difficulty Paying Gas/Electric Bills: No Difficulty Paying for Meds: No Currently Unemployed: No Education: High School Diploma/GED Difficulty w/ Childcare or Family Care: No Living arrangements: with family Occupation/Education: occupation 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 Please see nursing chart for further information. There is no relevant family history pertinent to the presenting complaint Exam Narrative: GENERAL: Mildly ill-appearing, well-nourished, and in no acute distress. HEAD: Normocephalic, atraumatic. EYES: EOMI. No redness or dr
== END 2023-09-30 17:22 | disposition home or self-care (01) ==
PROVIDERS: Emergency Provider Nurse Practitioner; PCP Family Medicine
DX: J40 Bronchitis, not specified as acute or chronic (principal); J01.90 Acute sinusitis, unspecified; F17.290 Nicotine dependence, other tobacco product, uncomplicated; Z79.899 Other long term (current) drug therapy
CPT/HCPCS: 99213; G0463

== ENCOUNTER 2023-11-08 19:06 | Emergency (ER) | payer OTHER, SELFPAY ==
[2023-11-08 19:19] VITALS: BP 121/73; PULSE 79; RESP 20; TEMP 36.9; O2SAT 100
[2023-11-08 19:27] VITALS: BP 121/73; PULSE 79; RESP 20; TEMP 36.9; O2SAT 100
--- NOTE | 2023-11-08 19:32 | ED.URI ---
HPI - URI/Sore Throat General Chief Complaint: Upper Respiratory Infection Stated Complaint: sinus issue Time Seen by Provider: 11/08/23 19:32 Source: patient, RN notes reviewed and old records reviewed Mode of arrival: ambulatory Limitations: no limitations History of Present Illness HPI Narrative: 33-year-old female presents to the [facility] with complaints of sinus pain, cough, fatigue, sore throat, pressure since waking up this morning. Denies any other symptoms Onset (ago): hour(s) Related Data Home Medications Medication Instructions Recorded Confirmed Saccharomyces boulardii 250 mg 250 mg PO .QD 07/23/21 11/08/23 capsule (Daily Probiotic (S. boulardii)) cholecalciferol (vitamin D3) 250 250 mcg PO DAILY 10/14/21 11/08/23 mcg (10,000 unit) capsule trazodone 50 mg tablet 100 mg PO HS PRN Sleep 09/01/22 11/08/23 Allergies Allergy/AdvReac Type Severity Reaction Status Date / Time vancomycin AdvReac Intermediate Hives Verified 11/08/23 19:28 Review of Systems Review of Systems: All systems reviewed & are unremarkable except as noted in HPI and below Constitutional: Constitutional: Reports no additional constitutional complaints Eyes: Eyes: Reports no additional eye complaints ENT: Reports as per HPI Cardiovascular: Cardiovascular: Reports no additional cardiovascular complaints, Denies chest pain and Denies dyspnea Respiratory: Respiratory: Reports no additional respiratory complaints, Denies chest congestion, Denies cough and Denies dyspnea Gastrointestinal: Gastrointestinal: Reports no additional gastrointestinal complaints, Denies abdominal pain, Denies nausea and Denies vomiting Musculoskeletal: Musculoskeletal: Reports no additional musculoskeletal complaints Integumentary/Breasts: Skin/Breast: Reports system reviewed and no additional complaints, except as docu Neurologic: Reports system reviewed and no additional complaints, except as documented Psychiatric: Psychiatric: Reports no additional psychiatric complaints Allergic/Immunologic: Allergic/Immunologic: Reports no additional allergic/immunologic complaints PMFSH Past Medical History Medical History Anxiety BMI 29.0-29.9,adult BMI 32.0-32.9,adult Constipation Gestational diabetes (normal spontaneous vaginal delivery) X4 gestational diabetes with 3 and 4 preeclampsia with 4 Obesity Surgical History Surgical History H/O section History of eye surgery History of tonsillectomy and adenoidectomy Family History Family History Sibling Crohn's disease Mother Hypertension Father No problems noted. Social History Social History Smoking status: Current some day smoker Tobacco type: cigars Second hand tobacco smoke exposure: No Additional smoking assessment comments: smokes 2 cigars a day Alcohol intake: current Alcohol use details: rarely Substance use: current Substance use type: marijuana Other substance usage details: marijuana Lack of Transportation: No Lack of Food: Never True Current Housing: I Have Housing Concerned About Future Housing: No Difficulty Paying Gas/Electric Bills: No Difficulty Paying for Meds: No Currently Unemployed: No Education: High School Diploma/GED Difficulty w/ Childcare or Family Care: No Living arrangements: with family Occupation/Education: occupation 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 There is no relevant family history pertinent to the patient comp
== END 2023-11-08 19:48 | disposition home or self-care (01) ==
PROVIDERS: Emergency Provider Nurse Practitioner; PCP Family Medicine
DX: U07.1 COVID-19 (principal); F17.290 Nicotine dependence, other tobacco product, uncomplicated; F12.90 Cannabis use, unspecified, uncomplicated; E66.9 Obesity, unspecified; Z68.31 Body mass index [BMI] 31.0-31.9, adult
CPT/HCPCS: 87081; 87426; 87804; 87880; 99213; G0463

== ENCOUNTER 2024-02-14 09:44 | Outpatient (CLI) | payer OTHER, SELFPAY ==
--- NOTE | 2024-02-14 11:00 | NEURO_ITS ---
Impression: # Complains of wrist pain and numbness. # Normal Nerve Conduction Study, no Carpal Tunnel Syndrome or ulnar neuropathy. # Normal needle/EMG exam. # Clinical correlation recommended. Nerve Conduction Studies Anti Sensory Summary Table Stim Site NR Peak (ms) P-T Amp (?V) Site1 Site2 Delta-P (ms) Dist (cm) Juaquin (m/s) Left Median Anti Sensory (2-3nd Digit) Wrist 2.7 88.9 Wrist 2-3nd Digit 2.7 14.0 52 Wrist 2.8 94.5 Wrist 2-3nd Digit 2.7 14.0 52 Right Median Anti Sensory (2-3nd Digit) Wrist 2.8 95.9 Wrist 2-3nd Digit 2.8 14.0 50 Wrist 2.9 85.4 Wrist 2-3nd Digit 2.8 14.0 50 Left Radial Anti Sensory (Base 1st Digit) Wrist 1.8 21.7 Wrist Base 1st Digit 1.8 0.0 Right Radial Anti Sensory (Base 1st Digit) Wrist 2.2 19.6 Wrist Base 1st Digit 2.2 0.0 Left Ulnar Anti Sensory (5th Digit) Wrist 2.3 63.2 Wrist 5th Digit 2.3 14.0 61 Right Ulnar Anti Sensory (5th Digit) Wrist 2.0 63.7 Wrist 5th Digit 2.0 14.0 70 Motor Summary Table Stim Site NR Onset (ms) O-P Amp (mV) Site1 Site2 Delta-0 (ms) Dist (cm) Juaquin (m/s) Left Median Motor (Abd Poll Brev) Wrist 2.7 3.1 Elbow Wrist 4.6 26.0 57 Elbow 7.3 2.6 Right Median Motor (Abd Poll Brev) Wrist 2.7 5.3 Elbow Wrist 5.3 27.0 51 Elbow 8.0 4.7 Left Ulnar Motor (Abd Dig Minimi) Wrist 2.5 5.4 A Elbow Wrist 5.0 28.0 56 A Elbow 7.5 4.0 Right Ulnar Motor (Abd Dig Minimi) Wrist 2.1 9.9 A Elbow Wrist 4.8 28.0 58 A Elbow 6.9 9.0 F Wave Studies NR F-Lat (ms) L-R F-Lat (ms) Left Median (Mrkrs) (Abd Poll Brev) 27.72 0.14 Right Median (Mrkrs) (Abd Poll Brev) 27.58 0.14 Left Ulnar (Mrkrs) (Abd Dig Min) 27.17 0.29 Right Ulnar (Mrkrs) (Abd Dig Min) 26.88 0.29 EMG Side Muscle Nerve Root Ins Act Fibs Amp Dur Recrt Comment Right 1stDorInt Ulnar C8-T1 Nml Nml Nml Nml Nml Right Ext Indicis Radial (Post Int) C7-8 Nml Nml Nml Nml Nml Right Ext Digitorum Radial (Post Int) C7-8 Nml Nml Nml Nml Nml Right BrachioRad Radial C5-6 Nml Nml Nml Nml Nml Right PronatorTeres Median C6-7 Nml Nml Nml Nml Nml Right Abd Poll Brev Median C8-T1 Nml Nml Nml Nml Nml Right ABD Dig Min Ulnar C8-T1 Nml Nml Nml Nml Nml Left 1stDorInt Ulnar C8-T1 Nml Nml Nml Nml Nml Left Ext Indicis Radial (Post Int) C7-8 Nml Nml Nml Nml Nml Left Ext Digitorum Radial (Post Int) C7-8 Nml Nml Nml Nml Nml Left BrachioRad Radial C5-6 Nml Nml Nml Nml Nml Left PronatorTeres Median C6-7 Nml Nml Nml Nml Nml Left Abd Poll Brev Median C8-T1 Nml Nml Nml Nml Nml Left ABD Dig Min Ulnar C8-T1 Nml Nml Nml Nml Nml MTDD
== END 2024-02-14 09:45 | disposition home or self-care (01) ==
PROVIDERS: PCP Family Medicine; Visit Provider Nurse Practitioner Family
DX: M25.531 Pain in right wrist (principal); M25.532 Pain in left wrist; R20.0 Anesthesia of skin; R20.2 Paresthesia of skin
CPT/HCPCS: 95886; 95911

== ENCOUNTER 2024-02-16 18:30 | Emergency (ER) | payer OTHER, SELFPAY ==
[2024-02-16 18:39] VITALS: BP 131/67; PULSE 66; RESP 14; TEMP 36.8; O2SAT 100
--- NOTE | 2024-02-16 18:43 | ED.EAR ---
HPI - Ear Problem General Chief complaint: Ear Stated complaint: right ear painful Time Seen by Provider: 02/16/24 18:51 Source: patient and RN notes reviewed Mode of arrival: ambulatory Limitations: no limitations History of Present Illness HPI Narrative: 34-year-old female presents with concern for right ear pain. She reports pain started yesterday with fatigue. Reports she has had couple day history of sore throat, nasal congestion. Reports she has been taking [id number] medications without relief. MD Complaint: ear pain Related Data Home Medications Medication Instructions Recorded Confirmed Saccharomyces boulardii 250 mg 250 mg PO .QD 07/23/21 02/16/24 capsule (Daily Probiotic (S. boulardii)) cholecalciferol (vitamin D3) 250 250 mcg PO DAILY 10/14/21 02/16/24 mcg (10,000 unit) capsule trazodone 50 mg tablet 100 mg PO HS PRN Sleep 09/01/22 02/16/24 Allergies Allergy/AdvReac Type Severity Reaction Status Date / Time vancomycin Allergy Intermediate Hives Verified 02/16/24 18:34 Review of Systems Review of Systems: CONSTITUTIONAL: Reports malaise, fatigue EYES: Denies visual changes, redness, or discharge. ENT: Reports rhinorrhea, congestion, and sore throat. Reports right ear pain CARDIOVASCULAR: Denies chest pain, palpitations, or edema. RESPIRATORY: Denies cough. Denies dyspnea. GASTROINTESTINAL: Denies abdominal pain, nausea, vomiting, diarrhea SKIN: Denies rash or itching. MUSCULOSKELETAL: Denies myalgia. NEUROLOGIC: Denies headache. All systems reviewed & are unremarkable except as noted in HPI and below PMFSH Past Medical History Medical History Anxiety BMI 29.0-29.9,adult BMI 32.0-32.9,adult Constipation Gestational diabetes (normal spontaneous vaginal delivery) X4 gestational diabetes with 3 and 4 preeclampsia with 4 Obesity Surgical History Surgical History H/O section History of eye surgery History of tonsillectomy and adenoidectomy Family History Family History Sibling Crohn's disease Mother Hypertension Father No problems noted. Social History Social History Smoking status: Current some day smoker Tobacco type: cigars and e-cigarettes/vaping Second hand tobacco smoke exposure: No Additional smoking assessment comments: smokes 2 cigars a day Alcohol intake: current Alcohol use details: rarely Substance use: current Substance use type: marijuana Other substance usage details: marijuana Lack of Transportation: No Lack of Food: Never True Current Housing: I Have Housing Concerned About Future Housing: No Difficulty Paying Gas/Electric Bills: No Difficulty Paying for Meds: No Currently Unemployed: No Education: High School Diploma/GED Difficulty w/ Childcare or Family Care: No Living arrangements: with family Occupation/Education: occupation 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 There is no relevant family history pertinent to the presenting complaint Exam Narrative: GENERAL: Well-appearing, well-nourished, and in no acute distress. HEAD: Normocephalic EYES: PERRLA, conjunctivae clear ENT: Nares clear, turbinates edematous, clear discharge. Mucous membranes moist. TM pearly calloway with dull light reflex on the left, erythematous and bulging on the right; no tragal tenderness. Oropharynx not erythematous without lesions. Tonsils not enlarged and without exudate, no drooling, no hoarseness, no trismus, uvula midline. NECK: Supple. No lymphade
== END 2024-02-16 19:03 | disposition home or self-care (01) ==
PROVIDERS: Emergency Provider Nurse Practitioner; PCP Family Medicine
DX: H66.91 Otitis media, unspecified, right ear (principal); F17.290 Nicotine dependence, other tobacco product, uncomplicated; F12.90 Cannabis use, unspecified, uncomplicated; E66.9 Obesity, unspecified; Z68.33 Body mass index [BMI] 33.0-33.9, adult
CPT/HCPCS: 99213; G0463

== ENCOUNTER 2024-03-13 14:19 | Outpatient (CLI) | payer OTHER, SELFPAY ==
[2024-03-13 14:33] LABS: Basophils Absolute Auto 0.1 K/mm3 (0.0-0.1); Basophils Percent Auto 0.5 % (0.2-1.2); Eosinophils Absolute Auto 0.1 K/mm3 (0-0.3); Eosinophils Percent Auto 0.7 % (0-4.4); Hematocrit 44.6 % (37.0-47.0); Hemoglobin 15.1 g/dL (12.0-15.0); Immature Granulocyte Absolute 0.04 K/mm3 (0.00-0.031); Immature Granulocyte Percent A 0.3 % (0-0.5); Lymphocytes Absolute Auto 4.77 K/mm3 (0.9-3.2); Lymphocytes Percent Auto 39.5 % (18.3-44.2); Mean Corpuscular HGB Conc 33.9 g/dl (32-36); Mean Corpuscular Hemoglobin 31.3 pg (26-34); Mean Corpuscular Volume 92.3 fl (80-100); Mean Platelet Volume 9.6 fl (7.4-10.4); Monocytes Absolute Auto 0.7 K/mm3 (0.1-0.6); Monocytes Percent Auto 5.8 % (2.6-8.5); Neutrophils Absolute Auto 6.4 K/mm3 (1.3-6.7); Neutrophils Percent Auto 53.2 % (45.5-73.1); Platelet Count Result 275 k/mm3 (150-375); Red Blood Count 4.83 M/mm3 (4.2-5.4); Red Cell Distribution Width 12.3 % (11.5-14.5); White Blood Count 12.1 K/mm3 (4.5-10.0)
[2024-03-13 16:34] LABS: Iron 130 ug/dL (37-170)
[2024-03-13 16:40] LABS: Alanine Aminotransferase 19 U/L (6-35); Albumin Level 4.6 g/dL (3.5-5.1); Alkaline Phosphatase 61 U/L (38-126); Anion Gap 7 mmol/L (4-12); Aspartate Amino Transferase 23 U/L (14-36); Bilirubin,Total 0.5 mg/dL (0.2-1.3); Blood Urea Nitrogen 11 mg/dL (7-17); CRP < 0.5 mg/dL (<1.0); Calcium 9.4 mg/dL (8.4-10.2); Carbon Dioxide 25 mmol/L (22-30); Chloride 106 mmol/L (98-107); Estimated Glomerular Filt Rate > 60; Glucose 86 mg/dL (65-110); Potassium 3.6 mmol/L (3.4-5.0); Sodium 138 mmol/L (137-145)
[2024-03-13 16:43] LABS: Percent Iron Saturation 38 % (20-50)
== END 2024-03-13 14:20 | disposition home or self-care (01) ==
LOC: ANHLAB 14:21
PROVIDERS: PCP Family Medicine; Visit Provider Nurse Practitioner Family
DX: D72.829 Elevated white blood cell count, unspecified (principal); D50.8 Other iron deficiency anemias
CPT/HCPCS: 36415; 80053; 82607; 82728; 83540; 83550; 85025; 86140; 88184

== ENCOUNTER 2024-03-21 14:16 | Outpatient (CLI) | payer OTHER, SELFPAY | END 2024-03-21 14:17 | disposition home or self-care (01) | LOC: ANHLAB 14:18 | PROVIDERS: PCP Family Medicine; Visit Provider Internal Medicine Hematology & Oncology | DX: D72.829 Elevated white blood cell count, unspecified (principal) | CPT/HCPCS: 88184 ==

== ENCOUNTER 2024-04-03 11:53 | Outpatient (CLI) | payer OTHER, SELFPAY ==
--- NOTE | ~2024-04-03 | XR_ITS ---
Left Hand Technique: PA, oblique, and lateral views were obtained. Clinical History: Numbness Findings: No acute fracture or dislocation is seen. Osseous alignment is anatomic. Joint spaces are p reserved. Soft tissues are unremarkable. Impression: Unremarkable left hand. Reviewed, dictated and finalized at location . Impression: Unremarkable left hand.
--- NOTE | ~2024-04-03 | XR_ITS ---
Right Hand Technique: PA, oblique, and lateral views were obtained. Clinical History: Numbness Findings: No acute fracture or dislocation is seen. Osseous alignment is anatomic. Joint spaces are p reserved. Soft tissues are unremarkable. Impression: Unremarkable right hand. Reviewed, dictated and finalized at location . Impression: Unremarkable right hand.
== END 2024-04-03 11:54 | disposition home or self-care (01) ==
LOC: ANHIMG 11:53
PROVIDERS: PCP Family Medicine; Visit Provider Plastic Surgery
DX: R20.0 Anesthesia of skin (principal); R20.2 Paresthesia of skin
CPT/HCPCS: 73130

== ENCOUNTER 2024-04-20 21:00 | Emergency (ER) | payer OTHER, SELFPAY ==
--- NOTE | ~2024-04-20 | CT_ITS ---
CT lumbar spine wo con Ordering provider: Rosemarie Foley PA-C History: 34 years Female with . low back pain radiating down legs . Comparison: None. Technique: CT lumbar spine without contrast. Automated exposure control and iterative reconstruction technique were employed. The dose-length product was 885.77 mGy-cm. FINDINGS: VERTEBRAE: Normal height and alignment. No subluxation or visible acute fracture. DISC SPACES: Slight narrowing at the level of L3-L4. T12-L1: No stenosis. L1-L2: No stenosis. L2-L3: No stenosis. L3-L4: No stenosis. Mild diffuse disc bulge. L4-L5: No stenosis. Diffuse disc bulge L5-S1: No stenosis. 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 Left sacroiliitis. IMPRESSION: No acute osseous abnormalities. Mild disc bulges at the levels of L3-L4, L4-L5 and L5-S1. Reviewed, dictated and finalized at location A.
[2024-04-20 21:03] VITALS: BP 113/68; PULSE 78; RESP 18; TEMP 36.9; O2SAT 99
--- NOTE | 2024-04-20 23:25 | ED.BACK ---
HPI - Back Pain/Injury General Chief Complaint: Back Pain/Injury Stated Complaint: back pain Time Seen by Provider: 04/20/24 22:52 Source: patient Mode of arrival: wheelchair Limitations: no limitations History of Present Illness HPI Narrative: This is a 34 year old female that presents to the ER for low back pain. Reports she bent over the morning and felt sudden onset pain. Reports intermittent trouble with her low back over the years. She took Meloxicam this morning after the injury. Denies saddle anesthesia or bowel/bladder incontinence. Related Data Home Medications Medication Instructions Recorded Confirmed Saccharomyces boulardii 250 mg 250 mg PO .QD 07/23/21 03/27/24 capsule (Daily Probiotic (S. boulardii)) cholecalciferol (vitamin D3) 250 250 mcg PO DAILY 10/14/21 03/27/24 mcg (10,000 unit) capsule trazodone 50 mg tablet 100 mg PO HS PRN Sleep 09/01/22 03/27/24 Allergies Allergy/AdvReac Type Severity Reaction Status Date / Time vancomycin Allergy Intermediate Hives Verified 04/20/24 21:06 Review of Systems Review of Systems: CONSTITUTIONAL: Denies fever MUSCULOSKELETAL: Reports back pain, joint pain, and myalgia. NEUROLOGIC: Denies numbness, or weakness. All systems reviewed & are unremarkable except as noted in HPI and below PMFSH Past Medical History Medical History Anxiety BMI 29.0-29.9,adult BMI 32.0-32.9,adult Constipation Gestational diabetes (normal spontaneous vaginal delivery) X4 gestational diabetes with 3 and 4 preeclampsia with 4 Obesity Surgical History Surgical History H/O section History of eye surgery History of tonsillectomy and adenoidectomy Family History Family History Sibling Crohn's disease Mother Hypertension Father No problems noted. Social History Social History (Updated 03/27/24 @ 10:46 by Sarita Hutchison MA) Smoking status: Current some day smoker Tobacco type: cigars and e-cigarettes/vaping Second hand tobacco smoke exposure: No Additional smoking assessment comments: smokes 2 cigars a day Alcohol intake: current Alcohol use details: rarely Substance use: current Substance use type: marijuana Other substance usage details: marijuana Lack of Transportation: No Lack of Food: Never True Current Housing: I Have Housing Concerned About Future Housing: No Difficulty Paying Gas/Electric Bills: No Difficulty Paying for Meds: No Currently Unemployed: No Education: High School Diploma/GED Difficulty w/ Childcare or Family Care: No Living arrangements: with family Occupation/Education: occupation 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 HEAD: Normocephalic, atraumatic. EYES: EOMI. CHEST: Clear to auscultation. No respiratory distress. No wheezes rales or rhonchi HEART: Regular rate and rhythm. No murmur heard. Normal peripheral pulses. BACK: No midline spinal tenderness EXTREMITIES: Normal range of motion. No edema. Strength equal in bilateral lower extremities SKIN: Warm, dry, no rash. NEURO: No focal deficits. Alert and oriented x3. PSYCH: Normal mood and affect Course Course Emergency Course: patient updated on workup and agrees with plan of care Vital Signs Vital signs: Vital Signs Temperature 98.5 F 04/20/24 21:03 Pulse Rate 78 04/20/24 21:03 Respiratory Rate 18 04/20/24 21:03 Blood Pressure 113/68 04/20/24 21:03 Pulse Oximetry 99 04/20/24 21:03 Temperature 98.5 F 04/20/24 21:03 Pulse Rate 78 04/20/24 21:03 Respiratory Rate 18 04/20/24 21:03
[2024-04-20] MEDS: diazePAM INJ (*CRX) 10 MG/2 ML SYRINGE 5 MG IM (23:35)
[2024-04-20] MEDS: ACETAMINOPHEN 500 MG TABLET 1000 MG PO (23:36)
[2024-04-21] MEDS: KETOROLAC 30 MG/ML VIAL (*BKC) IM (01:35)
[2024-04-21 01:44] VITALS: BP 118/72; PULSE 71; RESP 15; O2SAT 100
== END 2024-04-21 01:45 | disposition home or self-care (01) ==
PROVIDERS: Emergency Provider Physician Assistant; PCP Family Medicine
DX: M54.16 Radiculopathy, lumbar region (principal); F17.290 Nicotine dependence, other tobacco product, uncomplicated; F41.9 Anxiety disorder, unspecified
CPT/HCPCS: 72131; 81025; 96372; 99284; A9270; J1885; J3360

== ENCOUNTER 2024-07-31 12:39 | Emergency (ER) | payer OTHER, SELFPAY ==
--- NOTE | 2024-07-31 12:51 | ED.URI ---
HPI - URI/Sore Throat General Chief Complaint: Upper Respiratory Infection Stated Complaint: Cough/Chest Wall Pain Time Seen by Provider: 07/31/24 12:45 Source: patient Mode of arrival: ambulatory Limitations: no limitations History of Present Illness HPI Narrative: Patient is a 34-year-old female presents with 2 days of cough and chest congestion. Denies any shortness of breath but does states there is pain when coughing or taking a deep breath. Denies any fever, chills, nausea, vomiting, diarrhea, pain, congestion. Has not taken anything for symptoms. Related Data Home Medications Medication Instructions Recorded Confirmed Saccharomyces boulardii 250 mg 250 mg PO .QD 07/23/21 07/31/24 capsule (Daily Probiotic (S. boulardii)) cholecalciferol (vitamin D3) 250 250 mcg PO DAILY 10/14/21 07/31/24 mcg (10,000 unit) capsule trazodone 50 mg tablet 100 mg PO HS PRN Sleep 09/01/22 07/31/24 Allergies Allergy/AdvReac Type Severity Reaction Status Date / Time vancomycin Allergy Intermediate Hives Verified 07/31/24 12:43 Review of Systems Review of Systems: All systems reviewed & are unremarkable except as noted in HPI and below Constitutional: Constitutional: Denies body ache(s), Denies chills, Denies fatigue, Denies fever(s), Denies headache(s), Denies malaise and Denies weakness Eyes: Eyes: Denies blurry vision, Denies itchy eyes and Denies loss of vision ENT: Denies otalgia, Denies headache(s), Denies nasal congestion, Denies sinus pain and Denies sore throat Cardiovascular: Cardiovascular: Denies chest pain, Denies irregular heart rhythm and Denies dyspnea Respiratory: Respiratory: Reports chest congestion, Reports cough and Denies dyspnea Gastrointestinal: Gastrointestinal: Denies abdominal pain, Denies diarrhea, Denies nausea and Denies vomiting Musculoskeletal: Musculoskeletal: Denies back pain, Denies myalgias and Denies arthralgias Integumentary/Breasts: Skin/Breast: Denies pruritus and Denies rash Neurologic: Denies headache(s), Denies loss of vision and Denies weakness Psychiatric: Psychiatric: Reports no additional psychiatric complaints Endocrine: Endocrine: Denies fatigue Allergic/Immunologic: Allergic/Immunologic: Denies itchy eyes PMFSH Past Medical History Medical History Anxiety BMI 29.0-29.9,adult BMI 32.0-32.9,adult Constipation Gestational diabetes (normal spontaneous vaginal delivery) X4 gestational diabetes with 3 and 4 preeclampsia with 4 Obesity Surgical History Surgical History H/O section History of eye surgery History of tonsillectomy and adenoidectomy Family History Family History Sibling Crohn's disease Mother Hypertension Father No problems noted. Social History Social History Smoking status: Current some day smoker Tobacco type: cigars and e-cigarettes/vaping Second hand tobacco smoke exposure: No Additional smoking assessment comments: smokes 2 cigars a day Alcohol intake: current Alcohol use details: rarely Substance use: current Substance use type: marijuana Other substance usage details: marijuana Lack of Transportation: No Lack of Food: Never True Current Housing: I Have Housing Concerned About Future Housing: No Difficulty Paying Gas/Electric Bills: No Difficulty Paying for Meds: No Currently Unemployed: No Education: High School Diploma/GED Difficulty w/ Childcare or Family Care: No Living arrangements: with family Occupation/Education: occupation 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
[2024-07-31 12:59] VITALS: BP 113/79; PULSE 81; RESP 16; TEMP 36.4; O2SAT 99
[2024-07-31 13:37] LABS: EDCOVIDSCREEN Negative (Negative)
[2024-07-31 13:38] LABS: EDINFLUASCREEN Negative (Negative); EDINFLUBSCREEN Negative (Negative)
== END 2024-07-31 13:53 | disposition home or self-care (01) ==
PROVIDERS: Emergency Provider Nurse Practitioner Family; PCP Family Medicine
DX: J06.9 Acute upper respiratory infection, unspecified (principal); Z20.822 Contact with and (suspected) exposure to COVID-19; F17.290 Nicotine dependence, other tobacco product, uncomplicated; E66.9 Obesity, unspecified; Z68.33 Body mass index [BMI] 33.0-33.9, adult
CPT/HCPCS: 87426; 87804; 99213; G0463

== ENCOUNTER 2024-08-07 13:48 | Emergency (ER) | payer OTHER, SELFPAY ==
[2024-08-07 13:55] VITALS: BP 127/74; PULSE 72; RESP 16; TEMP 36.6; O2SAT 99
--- NOTE | 2024-08-07 14:15 | ED.URI ---
HPI - URI/Sore Throat General Chief Complaint: Upper Respiratory Infection Stated Complaint: Sinus Time Seen by Provider: 08/07/24 14:15 Source: patient, RN notes reviewed and old records reviewed Mode of arrival: ambulatory Limitations: no limitations History of Present Illness HPI Narrative: Patient presents with almost 2 weeks worth of sinus pain and pressure, purulent nasal drainage. Denies fever, does report excessive tiredness. States she thought she was getting better, but now feels worse. She has been taking [id number] pain relievers with poor relief. Denies any injury or trauma. No other concerns or complaints today. Related Data Home Medications Medication Instructions Recorded Confirmed Saccharomyces boulardii 250 mg 250 mg PO .QD 07/23/21 07/31/24 capsule (Daily Probiotic (S. boulardii)) cholecalciferol (vitamin D3) 250 250 mcg PO DAILY 10/14/21 07/31/24 mcg (10,000 unit) capsule trazodone 50 mg tablet 100 mg PO HS PRN Sleep 09/01/22 07/31/24 Allergies Allergy/AdvReac Type Severity Reaction Status Date / Time vancomycin Allergy Intermediate Hives Verified 08/07/24 13:57 Review of Systems Review of Systems: All systems reviewed & are unremarkable except as noted in HPI and below Constitutional: Constitutional: Reports no additional constitutional complaints ENT: Reports system reviewed and no additional complaints, except as documented, Reports as per HPI, Reports nasal congestion, Reports nasal discharge, Reports sinus pain and Reports sinus pressure Cardiovascular: Cardiovascular: Reports no additional cardiovascular complaints Respiratory: Respiratory: Reports no additional respiratory complaints Gastrointestinal: Gastrointestinal: Reports no additional gastrointestinal complaints PMFSH Past Medical History Medical History Anxiety BMI 29.0-29.9,adult BMI 32.0-32.9,adult Constipation Gestational diabetes (normal spontaneous vaginal delivery) X4 gestational diabetes with 3 and 4 preeclampsia with 4 Obesity Surgical History Surgical History H/O section History of eye surgery History of tonsillectomy and adenoidectomy Family History Family History Sibling Crohn's disease Mother Hypertension Father No problems noted. Social History Social History Smoking status: Current some day smoker Tobacco type: cigars and e-cigarettes/vaping Second hand tobacco smoke exposure: No Additional smoking assessment comments: smokes 2 cigars a day Alcohol intake: current Alcohol use details: rarely Substance use: current Substance use type: marijuana Other substance usage details: marijuana Lack of Transportation: No Lack of Food: Never True Current Housing: I Have Housing Concerned About Future Housing: No Difficulty Paying Gas/Electric Bills: No Difficulty Paying for Meds: No Currently Unemployed: No Education: High School Diploma/GED Difficulty w/ Childcare or Family Care: No Living arrangements: with family Occupation/Education: occupation 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 There is no relevant family history pertinent to the patient complaint. Exam Const: General: cooperative, no acute distress, alert and awake Orientation/consciousness: oriented to person, oriented to place and oriented to time HENMT: Head: normal to inspection Ears: TM abnormal dull bilateral and with fluid behind the TM bilateral Face/Nose/Sinus: sinus tendern
== END 2024-08-07 14:58 | disposition home or self-care (01) ==
PROVIDERS: Emergency Provider Nurse Practitioner Family; PCP Family Medicine
DX: J32.9 Chronic sinusitis, unspecified (principal); F17.290 Nicotine dependence, other tobacco product, uncomplicated; F12.90 Cannabis use, unspecified, uncomplicated; E66.9 Obesity, unspecified; Z68.34 Body mass index [BMI] 34.0-34.9, adult
CPT/HCPCS: 99213; G0463

== ENCOUNTER 2024-10-25 06:04 | Day surgery (SDC) | payer OTHER, SELFPAY ==
--- NOTE | 2024-10-25 06:47 | WPDHPUPDATE1 ---
History and Physical Update Update Date/Time: 10/25/24 06:47 Patient seen and examined in pre-operative holding area. No interval change in medical history or symptoms. Patient recalls previous discussion of benefits and alternatives to procedure. Continues to desire to proceed with right endoscopic possible open carpal tunnel release and right cubital tunnel release . Reviewed procedure, post-op expectations and risks including but not limited to bleeding, infection, injury to tendon/nerve/vessel, decreased hand function, stiffness, RSD, no change or worsening of symptoms. I discussed the possible use of assistants and their participation in the case. Patient stated understanding and signed the consent form wishing to proceed.
--- NOTE | 2024-10-25 06:48 | W.PM.PROC2 ---
Procedure Note - Detailed Date of Procedure 10/25/24 Pre-op Diagnosis RT Carpal and Cubital Tunnel Syndrome Post-op Diagnosis Same Procedure Performed right ectr and CuTR Surgeon Ric Cloud MD Multisensor Intelligence Officer jayy jaramillo pa-c Anesthesia MAC Description of Procedure INFORMED CONSENT: The patient was seen and examined and marked in the pre-op area.? The patient signed the consent form. PROCEDURE IN DETAIL:The patient taken back to OR on the stretcher in supine position. Time out performed with anesthesia, surgeon and staff agreeing on patient's name site and surgery to be performed SCDs were placed on the lower extremities and inflated. A tourniquet was placed on {right} upper extremity and antibiotics given IV After anesthesia administered sedation I injected {10}cc 1%lido with epi and 0.5% marcaine plain at the operative sites The?{right upper extremity}?was prepped and draped in sterile fashion the??{right upper extremity} was? exsanguinated with Esmarch bandage and tourniquet inflated to 250mmHg I made a transverse incision in the {right} volar distal wrist crease through skin and dermis with 15 blade scalpel.? Littler scissors spread down to antebrachial fascia. A small incision was made in antebrachial fascia allowing access to Carpal tunnel. I proceeded with sequential dilation staying in line with the ring finger and hugging the hook of the hamate.? I then used the synovial elevator to free any adhesions from the underside of the transverse carpal ligament. Next I was able to insert the Microaire endoscopic carpal tunnel device with direct visualization of the transverse fibers on the monitor and proceeded with complete segmental retrograde release of the ligament in its entirety.? I irrigated with normal saline and closed with 4-0 monocryl for dermis and subcuticular closure. I next proceeded with making a longitudinal incision between two heads for flexor carpi ulnaris at end of {right} cubital tunnel with 15 blade scalpel.? Littler scissors were used to spread down to FCU fascia.? An incision was made in FCU fascia and ulnar nerve identified exiting cubital tunnel.? I proceeded with complete retrograde release of the cubital tunnel including 7cm proximal for the intermuscular septum.? The nerve appeared healthy with visible vaso nervorum.? There was no subluxation on full elbow range of motion. ? I irrigated with normal saline and closure with 4-0 monocryl for dermis and subcuticular. The incisions were covered with Dermabond then 4x4s, judson, and a posterior elbow and volar wrist splint for patient safety, security and comfort and secured with shailesh bandages after the tourniquet was let down noting the hand was warm and well perfused.? Patient awaken from anesthesia and transferred to recovery in stable condition Complications - none EBL- 1cc Disposition - home in stable conditions Jayy Jaramillo PA-C was essential for positioning, retraction, closure and dressing placement [facility] Billing Surgery - Charge Forward: Surgery Billing ([id number] for jayy)
--- NOTE | 2024-10-25 06:53 | WPDANESEPPF ---
Anes - Initial Pre Proc Eval Procedure: Operation Date: 10/25/24 08:15 Proposed Procedures p Right Endoscopic Carpal Tunnel Release, Possible Open Carpal Tunnel Release - Ric Cloud MD s Right Cubital Tunnel Release - Ric Cloud MD Date/Time: 10/25/24 06:53 Surgeon: Ric Cloud MD Pre Op Diagnosis: RT Carpal and Cubital Tunnel Syndrome Patient Data Age: 34 Gender: F Height: 1.6 m Weight: 84 kg Allergies Allergy/AdvReac Type Severity Reaction Status Date / Time vancomycin Allergy Intermediate Hives Verified 10/25/24 07:12 Home Medications ?Medication ?Instructions ?Recorded ?Confirmed ?Type Saccharomyces boulardii 250 mg 250 mg PO .QD 07/23/21 10/25/24 History capsule (Daily Probiotic (S. boulardii)) cholecalciferol (vitamin D3) 250 250 mcg PO DAILY 10/14/21 10/25/24 History mcg (10,000 unit) capsule trazodone 50 mg tablet 100 mg PO HS PRN Sleep 09/01/22 10/25/24 History hydroxyzine HCl 25 mg tablet 25 mg PO BID PRN Anxiety #60 tabs 01/27/24 10/25/24 Rx bupropion HCl 150 mg 24 hr tablet, 150 mg PO QAM #30 tabs 06/27/24 10/25/24 Rx extended release (Wellbutrin XL) inhalational spacing device #1 ea 07/31/24 09/11/24 Rx (Aerochamber MV spacer) gabapentin 300 mg capsule 300 mg PO QHS #90 caps 08/23/24 10/25/24 Rx atogepant 60 mg tablet 60 mg PO DAILY #30 tabs 09/11/24 10/25/24 Rx ubrogepant 50 mg tablet (Ubrelvy) 50 mg PO ONCE #9 tabs 09/11/24 10/25/24 Rx divalproex 250 mg tablet,delayed 250 mg PO TID #90 tabs 10/02/24 10/25/24 Rx release (Depakote) sertraline 100 mg tablet 200 mg (2 x 100 mg) PO DAILY #60 10/02/24 10/25/24 Rx tabs Patient hx anesthesia problems: none Family hx anesthesia problems: none Results Review: All pre-operative results and documents have been reviewed as part of the pre-operative evaluation. [facility] Past Medical History Medical History (Updated 09/11/24 @ 13:29 by Gracy Shay APRN) Migraine headache BMI 32.0-32.9,adult BMI 29.0-29.9,adult (normal spontaneous vaginal delivery) X4 gestational diabetes with 3 and 4 preeclampsia with 4 Gestational diabetes Obesity Constipation Anxiety Surgical History Surgical History H/O section History of eye surgery History of tonsillectomy and adenoidectomy Family History Family History Sibling Crohn's disease Mother Hypertension Father No problems noted. Social History Social History (Updated 10/25/24 @ 07:58 by Evgeny Zhao DO) Smoking status: Current every day smoker Tobacco type: e-cigarettes/vaping Second hand tobacco smoke exposure: No Additional smoking assessment comments: smokes 2 cigars a day Alcohol intake: current Alcohol use details: rarely Substance use: current Substance use type: marijuana Other substance usage details: daily Lack of Transportation: No Lack of Food: Never True Current Housing: I Have Housing Concerned About Future Housing: No Difficulty Paying Gas/Electric Bills: No Difficulty Paying for Meds: No Currently Unemployed: No Education: High School Diploma/GED Difficulty w/ Childcare or Family Care: No Living arrangements: with family Occupation/Education: occupation 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 Informed Consent: The patient's anesthetic plan and its attendant risks and benefits were discussed with the patient/family/POA. Questions were solicited and answers provided to the satisfaction of the patient/family/POA.
[2024-10-25 07:16] VITALS: BMI 33.2
[2024-10-25 07:17] VITALS: BP 115/78; PULSE 68; RESP 16; TEMP 37.1; O2SAT 99
[2024-10-25] MEDS: LACTATED RINGERS 1,000 ML 30 ML IV CONT (07:37)
[2024-10-25] MEDS: ceFAZolin SODIUM 2 GM/20 ML SW SYRINGE IV PUSH (08:17)
[2024-10-25] MEDS: BUPivacaine HCL 0.5% PF 30 ML VIAL 9 ML INFILTRATE (08:33)
[2024-10-25 08:49] VITALS: BP 121/78; PULSE 86; RESP 18; O2SAT 96
[2024-10-25 08:59] VITALS: BP 117/79; PULSE 81; RESP 16; O2SAT 99
[2024-10-25 09:08] VITALS: BP 118/75; PULSE 64; RESP 15; O2SAT 99
[2024-10-25 09:18] VITALS: BP 126/82; PULSE 81; RESP 16; O2SAT 100
--- NOTE | 2024-10-25 10:30 | WPDANESPN ---
Anes - Prog Note Post-Op Date/Time: 10/25/24 10:30 Cardiovascular status: normal Respiratory status: normal Airway patency: baseline Mental status: baseline Post-Op hydration status: normal Vital Signs: Last Vital Signs Temp 37.1 C 10/25/24 07:17 Pulse 81 10/25/24 09:18 Resp 16 10/25/24 09:18 BP 126/82 10/25/24 09:18 Pulse Ox 100 10/25/24 09:18 O2 Del Method Room Air 10/25/24 09:18 Pain Score (VAS): 0 I/O: Intake & Output 10/24/24 10/25/24 10/25/24 23:59 07:59 15:59 Intake Total 600 Balance 600 Post-procedural complaints: none Patient Feedback: Patient satisfied with anesthetic care. Other Findings: Patient vital signs back to baseline. Patient denies nausea and vomiting. Patient's pain under control. Patient OK for discharge.
== END 2024-10-25 09:36 ==
PROVIDERS: PCP Family Medicine; Visit Provider Plastic Surgery
PROC: 01N54ZZ Release Median Nerve, Percutaneous Endoscopic Approach (ICD-10-PCS; CPT 29848; principal; 2024-10-25 08:15)
PROC: (CPT 64718; 2024-10-25 08:15)
CPT/HCPCS: 29848; 64718

== ENCOUNTER 2025-01-22 13:06 | Outpatient (CLI) | payer OTHER, SELFPAY ==
[2025-01-22 13:17] LABS: Basophils Absolute Auto 0.1 K/mm3 (0.0-0.1); Basophils Percent Auto 0.4 % (0.2-1.2); Eosinophils Absolute Auto 0.1 K/mm3 (0-0.3); Eosinophils Percent Auto 0.7 % (0-4.4); Hematocrit 44.3 % (37.0-47.0); Hemoglobin 15.1 g/dL (12.0-15.0); Immature Granulocyte Absolute 0.04 K/mm3 (0.00-0.031); Immature Granulocyte Percent A 0.3 % (0-0.5); Lymphocytes Absolute Auto 4.57 K/mm3 (0.9-3.2); Mean Corpuscular HGB Conc 34.1 g/dl (32-36); Mean Corpuscular Volume 93.9 fl (80-100); Mean Platelet Volume 9.6 fl (7.4-10.4); Monocytes Absolute Auto 0.6 K/mm3 (0.1-0.6); Neutrophils Absolute Auto 7.3 K/mm3 (1.3-6.7); Neutrophils Percent Auto 57.6 % (45.5-73.1); Platelet Count Result 275 k/mm3 (150-375); Red Blood Count 4.72 M/mm3 (4.2-5.4); Red Cell Distribution Width 12.1 % (11.5-14.5); White Blood Count 12.7 K/mm3 (4.5-10.0)
--- OUTSIDE RECORDS SUMMARY | 2025-01-22 14:16 | XMS_ITS | Encounter Summary ---
Author Organization [facility] ANETA Parker [facility] Address [address] [place] [address] Care Team Providers Care Director Of Student Aid Name Role Phone Sam Flores MD Primary Care Provider [phone] Reason for Visit * Reason Comments Follow Up Encounter Details Date Type Department Care Team (Late st Contact Info) Description 01/22/2025 1:15 PM CDT Office Visit [facility] Oncology and Hematology - [place] [address] [facility] [address] [place] [address] Hawk Pablo MD [address] [facility] [address] [place] [address] Leukocytosis, unspecified type (Primary Dx) Social History Tobacco Use Types Packs/Day Years Used Date Smoking Tobacco: Every Day Cigars Smokeless Tobacco: Never Tobacco Cessation:Ready to Q uit: Not Asked; Counseling Given: Not Answered Comments:Two cigars a day everything Alcohol Use Standard Drinks/Week Comments Yes 0 (1 standard drink = 0.6 oz pur e alcohol) socially Comments No Sex and Gender Information Value Date Recorded Sex Assigned at Not on file Legal Sex Female 11:45 AM CDT Gender Identity Not on file Sexual Orientation Not on file documented as of this encounter Last Filed Vital Signs Vital Sign Reading Time Taken Comments Blood Pressure 122/77 01/22/2025 1:19 PM CDT Pulse 75 01/22/2025 1:19 PM CDT Temperature 36.3 C (97.4 F) 01/22/2025 1:19 PM CDT Respiratory Rate 16 01/22/2025 1:19 PM CDT Oxygen Saturation 97% 01/22/2025 1:19 PM CDT Inhaled Oxygen Concentration - - Weight 82.6 kg (182 lb) 01/22/2025 1:19 PM CDT Height - - Body Mass Index 32.24 03/13/2024 1:37 PM CDT documented in this encounter Progress Notes * Hawk Pablo MD - 01/22/2025 1:20 PM CDT HEMATOLOGY / ONCOLOGY PROGRESS NOTE Patient Identification: Name: Aleta Turner Age: 34 y.o. Sex: female : 1990 DIAGNOSIS Reactive leukocytosis CURRENT TREATMENT Surveillance TREATMENT HISTORY SUBJECTIVE Patient came to the office for follow-up visit. She continues to smoke almost 1 pack/day. Denies any chest pain or shortness of breath. No bleeding and bruising. Weight and appetite stable. No other new complaints. Review of system Constitutional: Patient did not mention fevers, sweats, fatigue, malaise, weight loss HEENT: Patient did not mention sinus congestion, hearing or vision problems Respiratory: Patient did not mention cough, dyspnea, wheeze Cardiovascular: Patient did not mention chest pain, exertional chest pressure/discomfort, nausea, syncope, shortness of breath GI: Patient did not mention constipation, diarrhea, dsyphagia, reflux symptoms, vomiting, melena : Patient did not mention dysuria, frequency, incontinence, urgency Integumentary system: no lymphadenopathy, sweats, flushing Musculoskeletal: Patient not mention: myalgia, arthralgia Neurological: Patient did not mention blurry or disturbed vision, numbness/weakness, dizziness Skin: No lumps, bumps or rashes. Objective: Vital signs in last 24 hours: As per nursing note Exam: General appearance: alert, cooperative, no distress, appears stated age Head: normocephalic, without obvious abnormality, atraumatic Eyes: conjunctivae/corneas clear, EOM's intact Ears: normal external ear canals AU Nose: Nares normal. Septum midline. Mucosa normal. No drainage or sinus tenderness Throat: Lips, mucosa, and tongue normal. Teeth and gums normal Neck: supple, symmetrical, trachea midline. Lungs: clear to auscultation bilaterally Heart: regular rate and rhythm, S1, S2 normal, no murmur, click, rub or gallop Abdomen: soft, non-tender. Bowel sounds normal. No masses, No organomegaly Extremities: extremities normal, atraumatic, no cyanosis or edema Skin: Skin color, texture, turgor normal. No rashes or lesions Lymph nodes: No lymphadenopathy Neuro: No obvious focal deficit PATH LABS Labs from January 22 showed WBC 12.7 hemoglobin 15.1 platelet 275,000 neutrophil 57% lymphocytes 36% @IMAGEIMP@ Assessment: Plan: Patient Active Problem List Diagnosis Date Noted Severe episode of recurrent major depressive disorder, without psychotic features (CMS/HCC) 04/09/2022 PTSD (post-traumatic stress disorder) 04/09/2022 KAREN (generalized anxiety disorder) 04/09/2022 20 weeks gestation of Physical exam Reactive leukocytosis. Previous workup including flow cytometric analysis showed no evidence of leukemia and lymphoma. This is secondary to smoking and arthralgia. WBC count remains elevated but is stable. On my examination there is no evidence of lymphadenopathy and hepatosplenomegaly. I have strongly recommended to quit smoking. Follow-up with me in 1 year. Anxiety and depression. Patient is on Zoloft and Wellbutrin. Nerve pain. She is on gabapentin. ? TOBACCO COUNSELING She was counseled to discontinue tobacco/nicotine use. 01/22/2025 Hawk Pablo MD documented in this encounter Plan of Treatment Upcoming Encounters Date Type Department Care Team (Late st Contact Info) Description 01/22/2026 1:15 PM CDT Office Visit [facility] Oncology and Hematology - [place] [address] [place] [address] [address] [place] [address] Hawk Pablo MD [address] [facility] [address] [place] [address] Scheduled Orders Name Type Priority Associated Diagnoses Orde r Schedule CBC WITH DIFFERENTIAL Lab Stat Leukocytosis, unspecified type Expected: 01/22/2026, Expires: 01/22/2026 documented as of this encounter Visit Diagnoses Diagnosis Leukocytosis, unspecified type- Primary documented in this encounter Care Teams Director Of Student Aid Relationship Specialty Start Date End Date Sam Flores MD [address] [place] [address] PCP - General Family Practice 04/08/22 documented as of this encounter
--- OUTSIDE RECORDS SUMMARY | 2025-01-22 14:16 | XMS_ITS | Clinical Summary ---
Author Organization [facility] Address [address] [place] [address] Phone Care Team Providers Care Riverboat Master Name Role Phone Sam Flores MD Primary Care Provider [phone] Allergies Active Allergy Reactions Criticality Noted Date Comments Vancomycin Hives High 04/08/2022 Medications buPROPion HCL (WELLBUTRIN XL) 150 mg Extended Release 24 hour tablet Take 1 Tablet (150 mg) by mouth daily. 30 Tablet 04/13/2022 Active traZODone (DESYREL) 100 mg tablet Take 0.5-1 Tablets (50-100 mg) by mouth nightly as needed for Insomnia. 15 Tablet 04/12/2022 Active hydrOXYzine HCL (ATARAX) 25 mg tablet Take 1 Tablet (25 mg) by mouth every 6 hours as needed for Anxiety. 30 Tablet 04/12/2022 Active gabapentin (NEURONTIN) 300 mg capsule Take 300 mg by mouth 3 times daily. 02/21/2024 Active sertraline (ZOLOFT) 100 mg tablet Take 100 mg by mouth daily. 03/12/2024 Active divalproex sodium (DIVALPROEX ORAL) Take 100 mg by mouth 3 times daily. 2 50mg three times daily Active Active Problems Problem Noted Date Diagnosed Date Severe episode of recurrent major depressive disorder, without psychotic features 04/09/2022 PTSD (post-traumatic stress disorder) 04/09/2022 KAREN (generalized anxiety disorder) 04/09/2022 20 weeks gestation of Physical exam Encounters Date Type Department Care Team Description 01/22/2025 1:15 PM CDT Office Visit [facility] Oncology and Hematology - [place] [address] [place] [address] Hawk Pablo MD Leukocytosis, unspecified type (Primary Dx) 01/09/2025 External Device Data STL ABSTRACTION Provider, Abstract 01/01/2025 External Device Data STL ABSTRACTION Provider, Abstract 12/31/2024 External Device Data STL ABSTRACTION Provider, Abstract 12/11/2024 External Device Data STL ABSTRACTION Provider, Abstract 11/27/2024 External Device Data STL ABSTRACTION Provider, Abstract 11/14/2024 External Device Data STL ABSTRACTION Provider, Abstract 11/13/2024 External Device Data STL ABSTRACTION Provider, Abstract 10/30/2024 External Device Data STL ABSTRACTION Provider, Abstract from Last 3 Months Family History Medical History Relation Name Comments No Known Problems Brother No Known Problems Child 1 No Known Problems Child 2 No Known Problems Child 3 No Known Problems Child 4 No Known Problems Child 5 Hypertension Father Hypertension Mother No Known Problems Sister 1 No Known Problems Sister 2 Relation Name Status Comments Brother Alive Child 1 Alive Child 2 Alive Child 3 Alive Child 4 Alive Child 5 Alive Father Alive Mother Alive Sister 1 Alive Sister 2 Alive Social History Tobacco Use Types Packs/Day Years [...] on file Sexual Orientation Not on file Last Filed Vital Signs Vital Sign Reading Time Taken Comments Blood Pressure 122/77 01/22/2025 1:19 PM CDT Pulse 75 01/22/2025 1:19 PM CDT Temperature 36.3 C (97.4 F) 01/22/2025 1:19 PM CDT Respiratory Rate 16 01/22/2025 1:19 PM CDT Oxygen Saturation 97% 01/22/2025 1:19 PM CDT Inhaled Oxygen Concentration - - Weight 82.6 kg (182 lb) 01/22/2025 1:19 PM CDT Height 160 cm (5' 3 ) 03/13/2024 1:37 PM CDT Body Mass Index 32.24 03/13/2024 1:37 PM CDT Plan of Treatment Upcoming Encounters Date Type Department Care Team (Late st Contact Info) Description 01/22/2026 1:15 PM CDT Office Visit [facility] Oncology and Hematology [facility] [address] [place] [address] Hawk Pablo MD [address] [facility] [address] [place] [address] Health Maintenance Due Date Last Done Comments DTAP/TDAP/TD VACCINES (1 - Tdap) 01/28/2007 HEPATITIS B VACCINES (1 of 3 - 19+ 3-dose series) 01/28/2007 Preventative Visit-Managed Medicaid 01/28/2007 HPV/Cotest (21-29) 01/28/2009 CERVICAL CANCER SCREENING 01/28/2018 HPV/Cotest (30-65) 01/28/2018 PAP SMEAR 01/28/2018 INFLUENZA VACCINE (#1) 2024 Pre-Diabetes and Diabetes Screening 04/09/2025 04/09/2022 HPV VACCINES Aged Out No longer eligi ble based on patient's age to complete this topic Procedures Procedure Name Priority Date/Time Associated Diagnosis Comments HEMOGLOBIN A1C Routine 04/09/2022 8:09 AM CDT from Last 3 Months or Most Recently Relevant to Health Maintenance Results * HEMOGLOBIN A1C (04/09/2022 8:09 AM CDT) HEMOGLOBIN A1C 4.5 <5.7 % 04/09/2022 12:19 PM CDT [facility] EST. AVG GLUCOSE, A1C 82 mg/dL 04/09/2022 12:19 PM CDT [facility] Blood Venipuncture / Unknown 04/09/2022 8:09 AM CDT 04/09/2022 11:23 AM CDT Narrative [facility] - 04/09/2022 12:19 PM CDT HGB A1C INTERPRETATION NORMAL: <5.7% PRE-DIABETES: 5.7 - 6.4% DIABETES: 6.5% OR GREATER us Buck Barnard MD CHEMISTRY ORDERABLES Fi nal Result [facility] JALEN# [id number] [address] [place] [address] from Last 3 Months or Most Recently Relevant to Health Maintenance [place] [address] [place] [address] MEDICAID Advance Directives For more information, please contact: [phone] * Full Code (Latest Code Status on File) Date Activated Date Inactivated Comments 04/08/2022 11:29 PM 04/12/2022 1:05 PM Care Teams Riverboat Master Relationship Specialty Start Date End Date Sam Flores MD [address] [place] [address] PCP - General Family Practice 04/08/22
--- OUTSIDE RECORDS SUMMARY | 2025-01-22 14:16 | XMS_ITS | Clinical Summary ---
Author Organization [facility] [employer] Address [address] [place] [address] Care Team Providers Care Cad Programmer Name Role Phone Sam Flores MD Primary Care Provider [phone] Source Comments [facility],non-owned Affiliates and Associated Physician Practices is amultiple site organization consisting of ambulatory clinics and hospital sitesin [place], [place], [place] and [place]. This disclosure is being madepursuant to the Care Everywhere program and may not contain all information available regarding this patient. Last updated 18.[facility] [employer] Allergies Active Allergy Reactions Criticality Noted Date Comments Vancomycin Urticaria Medium 07/09/2020 Medications * Be aware that medications may not be up to date on this document. Alwaysverify current medications with the patient. Medication Sig Dispensed Refills Start Date End Date Status triple antibiotic (NEOSPORIN) 5-400-5000 ointment Apply to affected area 3 times daily 30 g 07/09/2020 Active acetaminophen (TYLENOL) 325 MG tablet Take 2 tablets by mouth every 4 hours as needed for Fever or Pain Maximum allowable Acetaminophen amount = 4 Grams (4000 mg) / 24 hours. 30 tablet 07/09/2020 Active amoxicillin (AMOXIL) 875 MG tablet Take 875 mg by mouth every 12 hours Active ketoconazole (Nizoral) 2 % shampoo Apply to affected area once daily 120 mL 04/14/2023 Active acetaminophen-buta lbital (Phrenilin) 50-325 MG tablet Take 1 (one) tablet by mouth every 6 hours as needed for Headache <!--EPICS-->Do not exceed 3 grams of acetaminophen (TYLENOL) daily.<!--EPICE--> 20 tablet 04/14/2023 Active cyclobenzaprine (Flexeril) 10 MG tablet Take 1 (one) tablet by mouth 2 times daily as needed for Muscle Spasms 10 tablet 04/14/2023 Active Active Problems No known active problems Social History Tobacco Use Types Packs/Day Years Used Date Smoking Tobacco: Every Day Cigars Smokeless Tobacco: Never Alcohol Use Standard Drinks/Week Comments Yes 0 (1 standard drink = 0.6 oz pur e alcohol) AUDIT-C Answer Date Recorded Q1: How often do you have a drink containing alc ohol? Patient declined 04/14/2023 Average Number of Drinks Not on file 023 Frequency of Binge Drinking Not on file 03/25 Sex and Gender Information Value Date Recorded Sex Assigned at Not on file Gender Identity Not on file Sexual Orientation Not on file Last Filed Vital Signs Vital Sign Reading Time Taken Comments Blood Pressure 109/76 04/14/2023 11:30 PM CDT Pulse 75 04/14/2023 8:13 PM CDT Temperature 36.8 C (98.2 F) 04/14/2023 8:13 PM CDT Respiratory Rate 16 04/14/2023 8:13 PM CDT Oxygen Saturation 99% 04/14/2023 11:30 PM CDT Inhaled Oxygen Concentration - - Weight 84.4 kg (186 lb) 04/14/2023 8:59 PM CDT Height 160 cm (5' 3 ) 04/14/2023 8:13 PM CDT Body Mass Index 32.95 04/14/2023 8:13 PM CDT Plan of Treatment Health Maintenance Due Date Last Done Comments PAP SMEAR 1990 HIV SCREENING 01/28/2003 HEPATITIS C SCREENING 01/24/2006 DTAP/TDAP/TD VACCINES (1 - Tdap) 01/28/2007 HEPATITIS B VACCINE (1 of 3 - 19+ 3-dose series) 01/28/2007 PNEUMOCOCCAL VACCINE (1 of 2 - PCV) 01/28/2007 COVID-19 VACCINE (3 - 2023-2 5 season) 2024 07/28/2021, 07/04/2021 INFLUENZA VACCINE (#1) 2024 07/15/2019 DEPRESSION SCREENING 10/24/2024 ZOSTER VACCINE (1 of 2) 01/28/2038 HIB VACCINE Aged Out No longer eligi ble based on patient's age to complete this topic HPV VACCINE Aged Out No longer eligi ble based on patient's age to complete this topic MENINGOCOCCAL (Group B) VACCINE SHARED DECISION-MAKING Aged Out No longer eligible based on patient's age to complete this topic MENINGOCOCCAL GROUPS A/C/Y/W VACCINE Aged Out No longer eligible b ased on patient's age to complete this topic Care Teams Cad Programmer Relationship Specialty Start Date End Date Sam Flores MD [address] [place] [address] PCP - General 07/18/19
== END 2025-01-22 13:07 | disposition home or self-care (01) ==
LOC: ANHLAB 13:08
PROVIDERS: PCP Family Medicine; Visit Provider Internal Medicine Hematology & Oncology
DX: D72.829 Elevated white blood cell count, unspecified (principal)
CPT/HCPCS: 36415; 85025